=== PATIENT | male | born 1975 | race African-American/Black ===

== ENCOUNTER 2017-01-04 07:27 | Emergency (ER) ==
[2017-01-04] MEDS ORDERED: BENADRYL IV ONE (07:50)
[2017-01-04] MEDS ORDERED: APRESOLINE IV ONE (07:50)
--- NOTE | 2017-01-04 08:14 | PROVIDER DOCUMENTATION ---
HPI-General Adult - General Source: patient - History of Present Illness -Gen Adult Nature of Presenting Problems: Reports HENNING and knots in his top of head, etc. Pt has h/o migraine and HTN. Elevated BP noticed, but denies med noncompliance. Positive for photophobia and cough, but no N/V. Reports neck and shoulder muscle spasm. Pt reports a fire extinguisher fell on top of his head 2 months ago and there is an inflammation spot since then. Location of Pain/Injury: reports: head, neck, back Pain Radiation: reports: no radiation Quality of Pain: reports: aching Severity: reports: moderate Onset/Duration: reports: 1 week ago Timing: reports: still present Context/Activities at Onset: reports: none Modifying Factors: improves with: nothing Associated Symptoms: reports: denies symptoms, cough, fatigue. denies: loss of appetite, shortness of breath, syncope Similar Symptoms Previously?: No Recently seen or treated by another doctor?: No <Herberth Estrada - Last Filed: 01/04/17 08:09> <Kavon Huddleston - Last Filed: 01/04/17 10:07> - General Chief Complaint: General Adult Stated Complaint: MIGRAINE HEADACHE,VOMITING,DIARRHEA,KNOT ON NECK Time Seen by Provider: 01/04/17 07:43 Allergies/Adverse Reactions: Patient Allergies Allergy/AdvReac Type Severity Reaction Status Date / Time shellfish derived Allergy Severe RASH Verified 01/04/17 08:26 nuts Allergy Severe RASH Uncoded 01/04/17 08:26 Home Medications: Home Medication List Medication Instructions Recorded Confirmed Last Taken Type Clonidine [Catapres] 0.1 mg PO DAILY PRN #15 tablet 01/04/17 Unknown Rx Review of Systems - Adult - REVIEW OF SYSTEMS - ADULT Constitutional: reports: see HPI. denies: fever, fatique Eyes: reports: no symptoms reported Ears, Nose, Mouth & Throat: reports: no symptoms reported Cardiovascular: reports: no symptoms reported Respiratory: reports: no symptoms reported Gastrointestinal: reports: no symptoms reported Genitourinary: reports: no symptoms reported Musculoskeletal: reports: see HPI. denies: back pain Neurological: reports: see HPI, headache/migraines. denies: dizziness/vertigo, numbness, syncope Psychiatric: reports: no symptoms reported All Other Systems: Reviewed and Negative <Estrada,Wenli X - Last Filed: 01/04/17 08:09> Past History - Adult - PAST MEDICAL HISTORY-ADULT Review of Records: reports: Old Records Reviewed, Nursing Assessment Review, Medications Reviewed Major Childhood Illnesses: reports: denies history Cardiovascular: reports: HTN Respiratory: reports: denies history Gastrointestinal: reports: ulcer, other (diverticulitis) Obstetrical/Gynecological: reports: denies history Genitourinary: reports: denies history Musculoskeletal: reports: denies history Neurological: reports: headaches/migraines Endocrine/Immune: reports: denies history Other Conditions: reports: denies history - PRIOR SURGERIES/PROCEDURES Surgical/Procedure History: reports: none - PRIOR HOSPITALIZATIONS Prior Hospitalizations: reports: none - IMMUNIZATION STATUS Childhood Immunizations: See Nurse Assessment Flu Vaccine: See Nurse Assessment - FAMILY HISTORY Family History: reviewed, not pertinent <Herberth Estrada X - Last Filed: 01/04/17 08:09> Physical Exam-General - PHYSICAL EXAM-ADULT Initial Vital Signs Reviewed: Yes - CONSTITUTIONAL General Appearance: alert, no apparent distress - EYES Eyes: PERRL/EOMI, pink conjunctivae - HEAD, EARS, NOSE, MOUTH & THROAT HENMT: normocephalic/atraumatic, moist mucous membranes - NECK Neck: non-tender, full range of motion, supple, normal inspection, other ( Positive for muscle spasm) - RESPIRATORY Respiratory: chest non-tender, lungs clear, normal breath sounds, no pleuratic chest pain, no respiratory distress, no accessory muscle use - CARDIOVASCULAR Cardiovascular: normal peripheral pulses, regular rate, rhythm, no edema - GASTROINTESTINAL (ABDOMEN) Abdominal Exam: normal bowel sounds, non tender, soft - MUSCULOSKELETAL Back Exam: normal inspection, no CVA tenderness, no vertebral tenderness Extremity: normal range of motion, non-tender, normal gait, normal inspection - SKIN Integumentary: normal color, normal turgor, warm/dry, swelling (Top of head has a coin sized chronic inflammation spot from the fire extinguisher X 1-2 months ago. No signs for infection.), tenderness - NEUROLOGIC Neurologic: no motor/sensory deficits, abnormal gait - PSYCHIATRIC Psych/Mental Status: normal mood/affect, normal thought content, normal thought process, oriented x 3 <Herberth Estrada X - Last Filed: 01/04/17 08:09> Progress - PLAN OF CARE/RESULTS Progress/Plan/Lab Results: Vital Signs Temp Pulse Resp BP Pulse Ox 01/04/17 07:29 99.0 F 89 18 217/148 99 shellfish derived Allergy (Severe, Verified 01/04/17 08:26) RASH nuts Allergy (Severe, Uncoded 01/04/17 08:26) RASH Clonidine [Catapres] 0.1 mg PO DAILY PRN #15 tablet 01/04/17 Laboratory 01/04/17 01/04/17 01/04/17 07:57 07:57 07:57 WBC RBC Hgb Hct MCV MCH MCHC RDW Std Deviation Plt Count MPV Immature Gran % (Auto) Neut % (Auto) Lymph % (Auto) Cowley % (Auto) Eos % (Auto) Baso % (Auto) Immature Gran # (Auto) Neut # (Auto) Lymph # (Auto) Cowley # (Auto) Eos # (Auto) Baso # (Auto) Sodium 138 Potassium 3.9 Chloride 99 Carbon Dioxide 24 L Anion Gap 15 BUN 13 Creatinine 1.2 Estimated GFR/1.73 m2 > 60 BUN/Creatinine Ratio 11 Glucose 113 H Calculated Osmolality 277 Calcium 9.4 Magnesium 2.0 Total Bilirubin 0.34 AST 26 ALT 17 Alkaline Phosphatase 99 Creatine Kinase 404 H Creatine Kinase Index 1.1 CK-MB (CK-2) 4.34 Troponin T < 0.010 Ter-D-Tmzozajengi Pept 69 Total Protein 7.9 Albumin 4.2 Globulin 3.7 Albumin/Globulin Ratio 1.1 01/04/17 07:57 WBC 7.95 RBC 4.75 Hgb 15.4 Hct 44.1 MCV 92.8 MCH 32.4 H MCHC 34.9 RDW Std Deviation 13.6 Plt Count 215 MPV 10.6 H Immature Gran % (Auto) 0.0 Neut % (Auto) 56.5 Lymph % (Auto) 25.7 Cowley % (Auto) 17.1 H Eos % (Auto) 0.4 Baso % (Auto) 0.3 Immature Gran # (Auto) 0.00 Neut # (Auto) 4.50 Lymph # (Auto) 2.04 Cowley # (Auto) 1.36 H Eos # (Auto) 0.03 Baso # (Auto) 0.02 Sodium Potassium Chloride Carbon Dioxide Anion Gap BUN Creatinine Estimated GFR/1.73 m2 BUN/Creatinine Ratio Glucose Calculated Osmolality Calcium Magnesium Total Bilirubin AST ALT Alkaline Phosphatase Creatine Kinase Creatine Kinase Index CK-MB (CK-2) Troponin T [id number] Pept Total Protein Albumin Globulin Albumin/Globulin Ratio Orders Category Date Time Status Cardiac Monitoring DIRECTED Care 01/04/17 07:50 Active Saline Loc NOW Care 01/04/17 07:50 Active CHEST-PORTABLE [RAD] Stat Exams 01/04/17 07:50 Draft HEAD W/O CONTRAST [CT] Stat Exams 01/04/17 08:05 Taken CBC WITH ELECTRONIC DIFF [HEME] Stat Lab 01/04/17 07:57 Completed CK PROFILE [SP CHEM] Stat Lab 01/04/17 07:57 Completed COMPREHENSIVE METABOLIC PANEL [CHEM] Stat Lab 01/04/17 07:57 Completed INFLUENZA SCREEN A/B Stat Lab 01/04/17 07:57 Completed MAGNESIUM [CHEM] Stat Lab 01/04/17 07:57 Completed PRO B-NATRIURETIC PEPTIDE Stat Lab 01/04/17 07:57 Completed TROPONIN T Stat Lab 01/04/17 07:57 Completed Diphenhydramine [Benadryl] Med 01/04/17 07:50 Discontinued 25 mg IV NOW ONE Hydralazine [Apresoline] Med 01/04/17 07:50 Discontinued 20 mg IV NOW ONE Morphine Med 01/04/17 09:59 Discontinued 4 mg IV NOW ONE Ondansetron [Zofran] Med 01/04/17 09:59 Discontinued 4 mg IV NOW ONE EKG [EKG] Stat Ther 01/04/17 07:50 Draft pt will be d/c home f/u with pcp, rx given, pt was clinically and neurologically stable - REASSESSMENT Reassessment #1 Time Reassessed: 09:30 Status: other Reassessment Comment: BP improving, pain medication not given yet Reassessment #2 Time Reassessed: 10:06 Status: improving Reassessment Comment: d/c home post pain medications - EKG 1 Time of EKG reading by physician:: 08:12 EKG Read and Signed by:: Herberth Estrada EKG Interpretation (*Must complete 3 of following elements*): Abnormal Rate: 79 Rhythm: NSR QRS: normal ST Wave: non-specific ST changes Comments: LAE - XRAY 1 XRAY Study: Chest Impression: Normal XRAY Interpretation: negative - CT/MRI 1 CT Study: Head Impression: Normal CT Results: negative <Kavon Huddleston - Last Filed: 01/04/17 10:07> Departure <Herberth Estrada - Last Filed: 01/04/17 08:09> - Departure Time of Disposition Order: 10:06 Certified Medical Emergency: Emergent - Critical Care Note Total Time (mins): 40 Critical Care Statement: This patient required my direct personal management to treat or rule out processes, the absence of which, could potentiallly result in sudden, clinically significant life or limb threatening deterioration. <Kavon Huddleston - Last Filed: 01/04/17 10:07> - Departure DIAGNOSIS: Hypertensive urgency Headache Qualifiers: Headache type: tension-type Headache chronicity pattern: acute headache Intractability: not intractable Qualified Code(s): G44.209 - Tension-type headache, unspecified, not intractable Disposition: HOME 01 Condition: Stable Additional Instructions: ED Follow Up Instructions: You have been treated by a care provider in the Emergency Department. These instructions are being provided to you so you can have an understanding of how to care for yourself upon discharge. Upon discharge from the Emergency Department, you are responsible for making arrangements for follow-up care by a physician of your choice. Take all prescribed medications as directed. Return to the Emergency Department immediately for any new or worsening symptoms. You may call the Physician Referral phone number at [phone] to obtain a list of Physicians who are taking new patients. Prescriptions: Clonidine [Catapres] 0.1 mg PO DAILY PRN #15 tablet PRN Reason: Blood Pressure Referrals: Rayshawn Blackwell MD [Primary Care Provider] - Call for Appoint. 1-2days Instructions: Hypertension, [id number], Migraine Headache, [id number] Attestation - Scribe Verification/Attestation Scribe:: Kavon Huddleston Acting as Scribe for:: Herberth Estrada Scribe documention review:: This chart was documented by a scribe and accurately reflects the service the provider performed and the decisions made by the provider. <Kavon Huddleston - Last Filed: 01/04/17 10:07> Physician Attestation - Physician Attestation I, the provider, attest to the following statement:: Herberth Estrada Physician documentation Attestation:: This documentation recorded by the scribe accurately reflects the service I personally performed and the decisions made by me. <Kavon Huddleston - Last Filed: 01/04/17 10:07>
[2017-01-04 08:21] LABS: MANUAL DIFF NEEDED? NO
[2017-01-04 08:24] LABS: BASO% 0.3 % (0.0-0.8); EOS# 0.03 X1000 (0.0-0.7); EOS% 0.4 % (0.0-10.0); HEMATOCRIT 44.1 % (42.0-52.0); HEMOGLOBIN 15.4 g/dL (14.0-18.0); LYMPH# 2.04 X1000 (1.2-3.4); LYMPH% 25.7 % (20.5-51.1); MCH 32.4 PG (27-31); MCHC 34.9 g/dL (33-37); MCV 92.8 FL (81-99); MONO# 1.36 X1000 (0.11-0.59); MONO% 17.1 % (1.7-9.3); MPV 10.6 FL (7.4-10.4); NEUT% 56.5 % (42.2-75.2); PLT 215 X1000 (130-400); RBC 4.75 XMIL (4.7-6.1)
[2017-01-04 08:46] LABS: AGAP 15; ALBUMIN 4.2 g/dL (3.5-5.0); ALKALINE PHOSPHATASE 99 U/L (32-122); BUN 13 mg/dL (8-22); CALCIUM 9.4 mg/dL (8.8-10.2); CHLORIDE 99 mmol/L (98-107); COSMO 277; GOT 26 U/L (10-34); GPT 17 U/L (10-44); POTASSIUM 3.9 mmol/L (3.5-5.1); SODIUM 138 mmol/L (136-145); TCO2 24 mmol/L (25-35); TOTAL BILIRUBIN 0.34 mg/dL (0.20-1.00); TOTAL PROTEIN 7.9 g/dL (6.3-8.3)
[2017-01-04 08:50] LABS: CK PROFILE 404 U/L (24-204)
--- NOTE | 2017-01-04 08:56 | EKG Report ---
Test Performed on : 01/04/2017 08:12:54 AM Test Reason : Chest Pain Blood Pressure : / mmHG Vent. Rate : 079 BPM Atrial Rate : 079 BPM P-R Int : 178 ms QRS Dur : 084 ms QT Int : 344 ms P-R-T Axes : 037 039 035 degrees QTc Int : 394 ms Normal sinus rhythm. Possible Left atrial enlargement Septal infarct (cited on or before 24-APR-2016) Abnormal ECG When compared with ECG of 24-APR-2016 18:31, No significant change was found Unconfirmed Result
[2017-01-04 09:15] LABS: CK INDEX 1.1 (0.0-2.5); CK-MB 4.34 ng/mL (0.0-5.0)
[2017-01-04] MEDS ORDERED: MORPHINE IV ONE (09:59)
[2017-01-04] MEDS ORDERED: ZOFRAN IV ONE (09:59)
--- NOTE | 2017-01-04 10:02 | Diag Imaging Result Document ---
PROCEDURE NAME: CHEST-PORTABLE - 01/04/2017 PORTABLE CHEST X-RAY 01/04/2017: COMPARISON: 12/01/2015. FINDINGS: The lungs are normally expanded and clear. Heart size and mediastinal contours are normal. No pneumothorax or pleural effusion. IMPRESSION: Negative exam.
--- NOTE | 2017-01-04 10:10 | Diag Imaging Result Document ---
PROCEDURE NAME: HEAD W/O CONTRAST - 01/04/2017 CT OF THE HEAD WITHOUT CONTRAST: FINDINGS: There is no evidence of acute mass effect, bleed or abnormal extra-axial fluid collection. The visualized paranasal sinuses are clear. The calvarium is intact. IMPRESSION: No evidence of acute disease.
[2017-01-04 10:19] VITALS: BP 159/99
== END 2017-01-04 10:33 | disposition home or self-care (01) ==
LOC: ED 07:27
DX: I16.0 Hypertensive urgency (principal); G44.209 Tension-type headache, unspecified, not intractable; R51 Headache; R22.0 Localized swelling, mass and lump, head; M54.2 Cervicalgia; M54.9 Dorsalgia, unspecified; R05 Cough; R53.83 Other fatigue; M62.838 Other muscle spasm; W20.8XXA Other cause of strike by thrown, projected or falling object, initial encounter
CPT/HCPCS: 70450; 71010; 80053; 82550; 82553; 83735; 83880; 84484; 85025; 87804; 93005; 96374; 96375; J0360; J1200; J2270; J2405

== ENCOUNTER 2017-02-03 14:51 | Observation (INO) ==
[2017-02-03] MEDS ORDERED: NS 1,000 ML IV ONE ×2 (15:18→17:39)
[2017-02-03] MEDS ORDERED: SODIUM CHLORIDE 0.9% INJ ONE (15:20)
[2017-02-03] MEDS ORDERED: PHENERGAN IV ONE (15:20)
[2017-02-03 15:34] LABS: MANUAL DIFF NEEDED? NO
[2017-02-03 15:47] LABS: BASO% 0.1 % (0.0-0.8); EOS# 0.34 X1000 (0.0-0.7); EOS% 3.8 % (0.0-10.0); HEMATOCRIT 43.3 % (42.0-52.0); HEMOGLOBIN 14.9 g/dL (14.0-18.0); LYMPH# 2.98 X1000 (1.2-3.4); LYMPH% 33.4 % (20.5-51.1); MCH 32.5 PG (27-31); MCHC 34.4 g/dL (33-37); MCV 94.3 FL (81-99); MONO# 0.91 X1000 (0.11-0.59); MONO% 10.2 % (1.7-9.3); MPV 10.7 FL (7.4-10.4); NEUT% 52.5 % (42.2-75.2); PLT 235 X1000 (130-400); RBC 4.59 XMIL (4.7-6.1)
[2017-02-03 15:57] LABS: AGAP 15; ALBUMIN 4.6 g/dL (3.5-5.0); ALKALINE PHOSPHATASE 100 U/L (32-122); AMYLASE 150 U/L (20-200); BUN 24 mg/dL (8-22); CALCIUM 9.6 mg/dL (8.8-10.2); CHLORIDE 97 mmol/L (98-107); COSMO 278; GOT 27 U/L (10-34); GPT 18 U/L (10-44); LIPASE 49 U/L (13-60); POTASSIUM 3.4 mmol/L (3.5-5.1); SODIUM 137 mmol/L (136-145); TCO2 25 mmol/L (25-35); TOTAL BILIRUBIN 0.33 mg/dL (0.20-1.00); TOTAL PROTEIN 8.3 g/dL (6.3-8.3)
[2017-02-03 17:16] LABS: URINE CULTURE NEEDED? NO; URINE MICRO REVIEW NEEDED? NO; URINE SOURCE CLEAN CATCH
[2017-02-03 17:21] LABS: BILIRUBIN URINE NEGATIVE (NEGATIVE); BLOOD URINE NEGATIVE (NEGATIVE); COLOR YELLOW; GLUCOSE URINE NEGATIVE (NEGATIVE); LEUKOCYTES URINE NEGATIVE (NEGATIVE); NITRITE URINE NEGATIVE (NEGATIVE); PH URINE 6.5; PROTEIN URINE 30 mg/dL (NEGATIVE); SP GRAVITY URINE 1.027; TURBIDITY URINE CLEAR (CLEAR); UR EPITHELIAL CELLS <10 /HPF (<10); URINE BACTERIA NEGATIVE /HPF; URINE RBC <10 /HPF (<10); URINE WBC <10 /HPF (<10); UROBILINOGEN URINE NORMAL (NORMAL)
--- NOTE | 2017-02-03 17:26 | Diag Imaging Result Document ---
PROCEDURE NAME: ABDOMEN FLAT/UPRIGHT - 02/03/2017 ABDOMEN, 2 VIEWS: COMPARISON: 12/01/2015. FINDINGS: Two views of the patient's abdomen were obtained in both the supine and upright positions. There is no evidence of free air under the diaphragm or air-fluid levels noted. The remainder of the visualized abdomen is unremarkable. IMPRESSION: Normal supine and upright abdomen study.
[2017-02-03 17:31] LABS: UR AMPHETAMINES QUAL NONE DETECTED (NONE DETECT); UR BARBITUATES QUAL NONE DETECTED (NONE DETECT); UR BENZODIAZEPIN QUAL NONE DETECTED (NONE DETECT); UR CANNABINOIDS QUAL PRESUMPTIVE POSITIVE (NONE DETECT); UR COCAINE QUAL NONE DETECTED (NONE DETECT); UR METHADONE QUAL NONE DETECTED (NONE DETECT); UR OPIATES QUAL NONE DETECTED (NONE DETECT); UR OXYCODONE QUAL NONE DETECTED (NONE DETECT); UR PCP QUAL NONE DETECTED (NONE DETECT)
[2017-02-03] MEDS ORDERED: ZOFRAN IV ONE (17:57)
[2017-02-03] MEDS ORDERED: CATAPRES-TTS-1 TD ONE (18:31)
[2017-02-03] MEDS: ZOFRAN IV PRN (19:15)
[2017-02-03] MEDS ORDERED: LOVENOX SUBQ SCH (19:15)
[2017-02-03] MEDS ORDERED: PROTONIX IV SCH (19:15)
[2017-02-03] MEDS ORDERED: SODIUM CHLORIDE 0.9% INJ SCH (19:15)
[2017-02-03] MEDS: DILAUDID IV PRN (20:31)
[2017-02-03] MEDS: APRESOLINE IV PRN (20:33)
--- NOTE | 2017-02-03 20:40 | Diag Imaging Result Document ---
PROCEDURE NAME: HEAD W/O CONTRAST - 02/03/2017 CT OF THE HEAD: A CT dose reduction protocol was used. COMPARISON: 01/04/2017. FINDINGS: The ventricles and sulci are normal in size and contour. There is no mass, hemorrhage, or evidence of acute ischemia. The bony calvaria is intact. The visualized paranasal sinuses and mastoid air cells are clear. IMPRESSION: Negative head CT. MTDD
--- NOTE | 2017-02-03 20:43 | Diag Imaging Result Document ---
PROCEDURE NAME: ABDOMEN/PELVIS W/CONTRAST - 02/03/2017 CT OF THE ABDOMEN AND PELVIS WITH INTRAVENOUS CONTRAST: A CT dose reduction protocol was used. COMPARISON: 04/24/2016. FINDINGS: The lung bases are clear and the heart size is normal. The liver, gallbladder, spleen, pancreas, adrenals, and kidneys are normal. No bowel obstruction or inflammation. Normal appendix. Urinary bladder, prostate, and rectum are normal. IMPRESSION: Negative exam. MTDD
--- NOTE | 2017-02-03 21:35 | HISTORY AND PHYSICAL ---
CHIEF COMPLAINT: Abdominal pain, nausea, vomiting. HISTORY OF PRESENT ILLNESS: Mr. Mccallum is a 41-year-old gentleman with a history of hypertension, GERD and previous admissions for intractable nausea and vomiting as well as marijuana dependence who presents with acute onset of abdominal pain, nausea, and vomiting that began this morning. He was at work at [employer] and began to experience intense bilateral lower quadrant abdominal pain followed by multiple episodes of emesis. He was in his normal state of health yesterday. He denies eating anything uncooked or novel. He denies any recent travel. He denies any chest pain or shortness of breath. No fevers or chills and no diarrhea. He came to the ER today because intractable nature of his vomiting and abdomen x-ray was done and it did not show anything acute. Laboratory data is largely unremarkable. He does have positive cannabinoid test and some mild hypokalemia. On physical exam he has lower quadrant tenderness to palpation but his belly is soft. He is quite lethargic, difficult to arouse and answer questions. Speech is a bit slurred and looks like he did get some Phenergan in the ER. His vital signs are stable. He is now going to be admitted for intractable nausea, vomiting. PAST MEDICAL HISTORY: 1. Hypertension. 2. GERD. 3. History of cyclic vomiting. 4. Marijuana dependence. SURGERIES: None. SOCIAL HISTORY: Patient smokes marijuana every other day. He denies alcohol or tobacco use. He is single and he has no children. He works at [employer]. FAMILY HISTORY: Significant for diabetes and hypertension. REVIEW OF SYSTEMS: Fourteen-point review of systems obtained and found to be negative with the exception of the HPI. HOME MEDICATIONS: Catapres 0.1 mg daily, irbesartan 150 mg daily, omeprazole 20 mg daily, Promethazine 25 mg every 6 hours as needed. ALLERGIES: To shellfish derivatives and nuts. PHYSICAL EXAMINATION: VITAL SIGNS: Blood pressure is 179/96, heart rate is 89, respiratory 22, O2 saturation 100% on room air, temperature is 98.1 degrees. GENERAL: This is a well-developed, well-nourished male lying in hospital bed lethargic but in no acute distress. NEUROLOGIC: The patient is lethargic, fairly difficult to arouse by verbal stimulus but he will converse after some time. He follows commands without focal deficits and he is oriented. HEENT: Head atraumatic and normocephalic. His pupils are equal, round, reactive to light. His oral mucosa is a bit dry. Trachea is midline. There is no JVD. CHEST: Clear to auscultation bilaterally. CV: Regular rate and rhythm. S1-S2 is noted. No murmurs, gallops, clicks, or rubs. GI: Diffusely tender to palpation mostly in both lower quadrants. Hypoactive bowel sounds are noted. There is no rigidity. Belly is overall soft. EXTREMITIES: Without edema, clubbing or cyanosis. Pulses are palpable bilaterally. DIAGNOSTIC DATA: Abdomen x-ray is negative. WBC 8.92, hemoglobin 14.9, hematocrit 43.3, platelet count 235,000. Sodium 137, potassium 3.4, chloride 97, CO2 25, anion gap 15, BUN 24, creatinine 1.2, glucose 108. LFTs within normal limits. Lipase and amylase within normal limits. Urine is negative for acute process. Toxicology is positive for cannabinoids. ASSESSMENT AND PLAN: 1. Cyclic vomiting: Unclear as to the etiology, possibly marijuana induced. We are going to go ahead and check a CT of the abdomen and pelvis with contrast now and consult Dr. Jack on Sunday unless he is feeling better by tomorrow and can go home and will have him see him on outpatient basis as there is nothing acute. We are also going to check a lactic acid. Will continue with IV fluids, antiemetics and NPO status. 2. Toxic metabolic encephalopathy: Again unclear as to the etiology, possibly marijuana induced. We are going to check a head CT, lactic acid, salicylate, acetaminophen levels, alcohol level, TSH, B12 and folate. Spice intoxication is also a possibility. 3. Hypertension: Obviously we are not going to be able to give him anything by mouth now. He takes clonidine every day so will start a 1 mg patch as to not abruptly withdraw this medication. Will also have IV p.r.n. medications as needed. 4. History of gastroesophageal reflux disease: Will start IV Protonix. 5. Deep vein thrombosis prophylaxis with Lovenox. Further recommendations to follow. Dictated by CÉSAR March for Gunner Isaacs MD cc: CÉSAR March MD
[2017-02-04] MEDS: DILAUDID IV PRN ×3 (00:42→10:43)
[2017-02-04] MEDS: APRESOLINE IV PRN ×4 (00:42→09:00)
[2017-02-04] MEDS ORDERED: LOPRESSOR PO ONE (04:27)
[2017-02-04] MEDS: ZOFRAN IV PRN ×2 (04:38→08:56)
[2017-02-04] MEDS: NITROGLYCERIN TOP SCH ×2 (04:39→15:24)
[2017-02-04] MEDS: TYLENOL PO PRN ×2 (10:39→16:04)
[2017-02-04 15:36] VITALS: BP 137/82
--- NOTE | 2017-02-05 04:23 | DISCHARGE SUMMARY ---
ADMISSION DATE: 02/03/2017 DISCHARGE DATE: 02/04/2017 DISPOSITION: Home. FOLLOWUP: Will be with patient's primary care physician. CONSULTATION DURING THIS ADMISSION: None. IMAGING STUDIES OF SIGNIFICANCE: 1. A CT scan of the abdomen and pelvic was done which shows negative studies. 2. A CT scan of the head also shows negative. ADMISSION DIAGNOSES: 1. Cyclic vomiting. 2. Toxic metabolic encephalopathy. 3. Hypertension. DISCHARGE DIAGNOSES: 1. Altered mental status on presentation due toxic metabolic encephalopathy. 2. Nausea and vomiting, likely due to drug induced (cannabis). 3. Cannabis abuse. 4. Hypertension. PRESENTING COMPLAINT: Abdominal pain, nausea, and vomiting. HISTORY OF PRESENTING COMPLAINT: Mr. Mccallum is a 41-year-old male with a history of hypertension, gastroesophageal reflux disease, who has some previous admission for intractable nausea and vomiting. The patient presented in the same fashion with uncontrollable nausea and vomiting. The patient got treatment in the emergency room but did not subside and we were consulted for admission. HOSPITAL COURSE: The patient was admitted and kept NPO, IV fluids, and symptoms were managed. Overnight he improved remarkably. A CT scan of the abdomen and pelvis was completely unremarkable. The patient was also altered, so a CT scan of the head was done which was also unremarkable. Today he refers to feel a whole lot better. He has been up and walking. He is no more altered. His vitals are reviewed and stable and the patient is able to tolerate his diet. We are therefore going to discharge him. The patient has been counseled. We stressed counseling on cannabis cessation, since we think it is the cause of his problems with the cyclic vomiting. The patient is advised also to be compliant with his medications and follow up with his primary care doctor. At the time of discharge, the patient vitals blood pressure is 140/93, pulse is 100, respiration is 20, temperature is 98.8 degrees. TIME SPENT: The time spent for discharge is 37 minutes. cc: Gunner Isaacs MD MTDAnh
--- NOTE | 2017-02-21 13:11 | PROVIDER DOCUMENTATION ---
This chart was entered by Jaja Boyd, acting as scribe for Haroon Kyle MD. HPI-Abdominal Pain/GI Problem - General Chief Complaint: Abdominal Pain Stated Complaint: VOMITING Time Seen by Provider: 02/03/17 15:12 Source: patient Allergies/Adverse Reactions: Patient Allergies Allergy/AdvReac Type Severity Reaction Status Date / Time shellfish derived Allergy Severe RASH Verified 02/03/17 15:45 nuts Allergy Severe RASH Uncoded 02/03/17 15:45 Home Medications: Home Medication List Medication Instructions Recorded Confirmed Last Taken Type Clonidine [Catapres] 0.1 mg PO DAILY PRN #15 tablet 01/04/17 02/03/17 Unknown Rx Irbesartan [Irbesartan] 1 tab PO 02/03/17 02/03/17 07:00 History Omeprazole [Omeprazole] 1 tab PO DAILY 02/03/17 02/03/17 02/02/17 07:00 History Promethazine HCl [Promethazine HCl] 1 tab PO PRN PRN 02/03/17 02/03/17 02/03/17 07:00 History - History of Present Illness-ABD Nature of Presenting Problems: pt is a 41 y/o male present to the Er with cc of vomiting x5 episodes along with abdominal pain since this morning. pt states he comes into the Er with this problem very often and they called it dehydration or diverticulitis. pt states symptoms started this morning at 9am. Pt also states the only thing he did was smoke some weed last night. denies diarrhea, fever, chills. Abdominal Pain Onset Location: reports: LLQ Pain Radiation: reports: no radiation Quality of Pain: reports: tightness Severity in ED: reports: moderate Onset/Duration: reports: this morning Timing: reports: still present Activities at Onset: reports: none Exposure to sick contacts?: No Modifying Factors: improves with: nothing Associated Symptoms: reports: nausea, vomiting Last BM: 24 hours ago Rectal Bleeding: reports: none # of Diarrhea Episodes: 0 # of Vomiting Episodes: 5 Bruising or Bleeding Gums?: No Similar Symptoms Previously?: No Recently seen or treated by another doctor?: No Review of Systems - Adult - REVIEW OF SYSTEMS - ADULT Constitutional: denies: chills, fever, fatique Eyes: reports: no symptoms reported Ears, Nose, Mouth & Throat: reports: no symptoms reported Cardiovascular: reports: no symptoms reported Respiratory: denies: chronic cough, cough, dyspnea on exertion Gastrointestinal: reports: abdominal pain, nausea, vomiting. denies: difficulty swallowing, frequent heartburn Genitourinary: denies: dysuria, discharge, frequency Musculoskeletal: reports: no symptoms reported Integumentary: reports: no symptoms reported Neurological: reports: no symptoms reported Psychiatric: reports: no symptoms reported Endocrine: reports: no symptoms reported Hematologic/Lymphatic: reports: no symptoms reported Allergic/Immunologic: reports: no symptoms reported All Other Systems: Reviewed and Negative Past History - Adult - PAST MEDICAL HISTORY-ADULT Review of Records: reports: Old Records Reviewed, Nursing Assessment Review Major Childhood Illnesses: reports: denies history Cardiovascular: reports: HTN Respiratory: reports: denies history Gastrointestinal: reports: ulcer, other (diverticulitis) Obstetrical/Gynecological: reports: denies history Genitourinary: reports: denies history Musculoskeletal: reports: denies history Neurological: reports: headaches/migraines Endocrine/Immune: reports: denies history Other Conditions: reports: denies history - PRIOR SURGERIES/PROCEDURES Surgical/Procedure History: reports: none - PRIOR HOSPITALIZATIONS Prior Hospitalizations: reports: none - IMMUNIZATION STATUS Childhood Immunizations: See Nurse Assessment Flu Vaccine: See Nurse Assessment - FAMILY HISTORY Family History: reviewed, not pertinent - SOCIAL HISTORY Smoking: other (former smoker) Provider spent 3-5 mins advising pt. on dangers of tobacco.: Discussed manners to quit use, and f/u contacts for add'l counseling. Substance Use: marijuana Physical Exam-General - PHYSICAL EXAM-ADULT Initial Vital Signs Reviewed: Yes - CONSTITUTIONAL General Appearance: appears well, alert, no apparent distress, moderate distress - EYES Eyes: pink conjunctivae - HEAD, EARS, NOSE, MOUTH & THROAT HENMT: moist mucous membranes - NECK Neck: non-tender, full range of motion - RESPIRATORY Respiratory: chest non-tender, lungs clear, normal breath sounds, no pleuratic chest pain, no respiratory distress, no accessory muscle use - CARDIOVASCULAR Cardiovascular: normal peripheral pulses, regular rate, rhythm - GASTROINTESTINAL (ABDOMEN) Abdominal Exam: normal bowel sounds, tenderness (LLQ TTP) - MUSCULOSKELETAL Extremity: normal range of motion, non-tender, normal gait, normal inspection, no pedal edema, no calf tenderness, normal capillary refill - SKIN Integumentary: normal color, normal turgor, warm/dry - NEUROLOGIC Neurologic: grossly normal, no motor/sensory deficits - PSYCHIATRIC Psych/Mental Status: normal mood/affect, normal thought content, normal thought process, oriented x 3 Progress - PLAN OF CARE/RESULTS Progress/Plan/Lab Results: Vital Signs - 8 hr 02/03/17 14:57 Temperature 97.6 F Pulse Rate 93 H Respiratory Rate 20 Blood Pressure 191/123 O2 Sat by Pulse Oximetry 100 Orders Category Date Time Status Saline Loc DIRECTED Care 02/03/17 15:00 Active NPO Diet 02/03/17 15:00 Active AMYLASE [CHEM] Stat Lab 02/03/17 15:00 Uncollected CBC WITH ELECTRONIC DIFF [HEME] Stat Lab 02/03/17 15:00 Uncollected COMPREHENSIVE METABOLIC PANEL [CHEM] Stat Lab 02/03/17 15:00 Uncollected LIPASE [CHEM] Stat Lab 02/03/17 15:00 Uncollected UDS [URINE DRUG SCREEN] Stat Lab 02/03/17 15:13 Uncollected URINALYSIS W/POSS RFLX CULT [URINALYSIS] Stat Lab 02/03/17 15:00 Uncollected 0.9% Sodium Chloride Inj [Ns] 1,000 ml Med 02/03/17 15:18 Active IV 999 mls/hr Laboratory Tests 02/03/17 02/03/17 15:15 15:15 WBC 8.92 RBC 4.59 L Hgb 14.9 Hct 43.3 MCV 94.3 MCH 32.5 H MCHC 34.4 RDW Std Deviation 13.6 Plt Count 235 MPV 10.7 H Neut % (Auto) 52.5 Lymph % (Auto) 33.4 [place] % (Auto) 10.2 H Eos % (Auto) 3.8 Baso % (Auto) 0.1 Neut # (Auto) 4.68 Lymph # (Auto) 2.98 [place] # (Auto) 0.91 H Eos # (Auto) 0.34 Baso # (Auto) 0.01 Sodium 137 Potassium 3.4 L Chloride 97 L Carbon Dioxide 25 Anion Gap 15 BUN 24 H Creatinine 1.2 Estimated GFR/1.73 m2 > 60 BUN/Creatinine Ratio 20 Glucose 108 H Calculated Osmolality 278 Calcium 9.6 Total Bilirubin 0.33 AST 27 ALT 18 Alkaline Phosphatase 100 Total Protein 8.3 Albumin 4.6 Globulin 3.7 Albumin/Globulin Ratio 1.2 Amylase 150 Lipase 49 Orders Category Date Time Status Saline Loc DIRECTED Care 02/03/17 15:00 Active NPO Diet 02/03/17 15:00 Active ABDOMEN FLAT/UPRIGHT [RAD] Stat Exams 02/03/17 15:19 Ordered AMYLASE [CHEM] Stat Lab 02/03/17 15:00 Uncollected CBC WITH ELECTRONIC DIFF [HEME] Stat Lab 02/03/17 15:00 Uncollected COMPREHENSIVE METABOLIC PANEL [CHEM] Stat Lab 02/03/17 15:00 Uncollected LIPASE [CHEM] Stat Lab 02/03/17 15:00 Uncollected UDS [URINE DRUG SCREEN] Stat Lab 02/03/17 15:13 Uncollected URINALYSIS W/POSS RFLX CULT [URINALYSIS] Stat Lab 02/03/17 15:00 Uncollected 0.9% Sodium Chloride Inj [Ns] 1,000 ml Med 02/03/17 15:18 Active IV 999 mls/hr Promethazine [Phenergan] Med 02/03/17 15:20 Discontinued 25 mg IV NOW ONE Sodium Chloride 0.9% Med 02/03/17 15:20 Discontinued 10 ml INJ NOW ONE Vital Signs - 24 hr 02/03/17 14:57 Temperature 97.6 F Pulse Rate 93 H Respiratory Rate 20 Blood Pressure 191/123 O2 Sat by Pulse Oximetry 100 Laboratory Tests 02/03/17 02/03/17 02/03/17 15:15 15:15 16:58 WBC 8.92 RBC 4.59 L Hgb 14.9 Hct 43.3 MCV 94.3 MCH 32.5 H MCHC 34.4 RDW Std Deviation 13.6 Plt Count 235 MPV 10.7 H Neut % (Auto) 52.5 Lymph % (Auto) 33.4 [place] % (Auto) 10.2 H Eos % (Auto) 3.8 Baso % (Auto) 0.1 Neut # (Auto) 4.68 Lymph # (Auto) 2.98 [place] # (Auto) 0.91 H Eos # (Auto) 0.34 Baso # (Auto) 0.01 Sodium 137 Potassium 3.4 L Chloride 97 L Carbon Dioxide 25 Anion Gap 15 BUN 24 H Creatinine 1.2 Estimated GFR/1.73 m2 > 60 BUN/Creatinine Ratio 20 Glucose 108 H Calculated Osmolality 278 Calcium 9.6 Total Bilirubin 0.33 AST 27 ALT 18 Alkaline Phosphatase 100 Total Protein 8.3 Albumin 4.6 Globulin 3.7 Albumin/Globulin Ratio 1.2 Amylase 150 Lipase 49 Urine Source CLEAN CATCH Urine Color YELLOW Urine Turbidity CLEAR Urine pH 6.5 Ur Specific [place] 1.027 Urine Protein 30 A Ur Glucose (Stick) NEGATIVE Ur Ketones (Stick) TRACE A Urine Blood NEGATIVE Urine Nitrite NEGATIVE Urine Bilirubin NEGATIVE Urobilinogen Dipstick NORMAL Urine Leukocytes NEGATIVE Urine WBC (Auto) <10 Urine RBC (Auto) <10 U Epithel Cells (Auto) <10 Urine Bacteria (Auto) NEGATIVE Urine Opiates Screen Ur Oxycodone Screen Ur Methadone, Qual Ur Barbiturates Screen Ur Phencyclidine Scrn Ur Amphetamines Screen U Benzodiazepines Scrn Urine Cocaine Screen U Cannabinoids Screen 02/03/17 16:58 WBC RBC Hgb Hct MCV MCH MCHC RDW Std Deviation Plt Count MPV Neut % (Auto) Lymph % (Auto) [place] % (Auto) Eos % (Auto) Baso % (Auto) Neut # (Auto) Lymph # (Auto) [place] # (Auto) Eos # (Auto) Baso # (Auto) Sodium Potassium Chloride Carbon Dioxide Anion Gap BUN Creatinine Estimated GFR/1.73 m2 BUN/Creatinine Ratio Glucose Calculated Osmolality Calcium Total Bilirubin AST ALT Alkaline Phosphatase Total Protein Albumin Globulin Albumin/Globulin Ratio Amylase Lipase Urine Source Urine Color Urine Turbidity Urine pH Ur Specific [place] Urine Protein Ur Glucose (Stick) Ur Ketones (Stick) Urine Blood Urine Nitrite Urine Bilirubin Urobilinogen Dipstick Urine Leukocytes Urine WBC (Auto) Urine RBC (Auto) U Epithel Cells (Auto) Urine Bacteria (Auto) Urine Opiates Screen NONE DETECTED Ur Oxycodone Screen NONE DETECTED Ur Methadone, Qual NONE DETECTED Ur Barbiturates Screen NONE DETECTED Ur Phencyclidine Scrn NONE DETECTED Ur Amphetamines Screen NONE DETECTED U Benzodiazepines Scrn NONE DETECTED Urine Cocaine Screen NONE DETECTED U Cannabinoids Screen PRESUMPTIVE POSITIVE A Result Diagrams: 02/03/17 15:15 02/03/17 15:15 - XRAY 1 XRAY: Bilateral XRAY Study: Abdomen (abdomen flat/upright) Impression: Normal (normal supine and upright abdomen study) Departure - Departure Time of Disposition Decision: 19:10 DIAGNOSIS: Intractable vomiting, Abdominal pain Disposition: ADMITTED INPATIENT 09 Certified Medical Emergency: Emergent Condition: Stable - Critical Care Note This patient required my direct personal management.: No This chart was documented by the indicated scribe, (Jaja Boyd) and accurately reflects the services I performed and decisions made by me, Haroon Kyle MD, as attested by the provider's signature.
== END 2017-02-04 16:35 | disposition home or self-care (01) ==
LOC: ED 14:51 → 4N 20:42 → INTOOBSV 20:42
PROVIDERS: ATTEND Internal Medicine

== ENCOUNTER 2018-11-20 07:05 | Inpatient (IN) ==
--- NOTE | 2018-11-20 07:57 | PROVIDER DOCUMENTATION ---
HPI-Abdominal Pain/GI Problem - General Chief Complaint: N/V/D Stated Complaint: VOMITING / SWEATING / DEHYDRATED Time Seen by Provider: 11/20/18 07:49 Source: patient Unable to obtain history due to:: urgency Allergies/Adverse Reactions: Patient Allergies Allergy/AdvReac Type Severity Reaction Status Date / Time shellfish derived Allergy Severe RASH Verified 06/03/18 09:32 nuts Allergy Severe RASH Uncoded 06/03/18 09:32 Home Medications: Home Medication List Medication Instructions Recorded Confirmed Last Taken Type Dicyclomine [Bentyl] 10 mg PO 4XDAY PRN PRN #14 cap 06/03/18 Unknown Rx Ondansetron Odt [Zofran 4 mg Odt] 4 mg PO Q6H PRN PRN #20 tab 06/03/18 Unknown Rx - History of Present Illness-ABD Abdominal Pain Onset Location: reports: generalized abdomen Severity in ED: reports: moderate Onset/Duration: reports: 2 days ago Timing: reports: still present Associated Symptoms: reports: diarrhea Similar Symptoms Previously?: No Review of Systems - Adult - REVIEW OF SYSTEMS - ADULT Constitutional: reports: see HPI Eyes: reports: no symptoms reported Ears, Nose, Mouth & Throat: reports: no symptoms reported Cardiovascular: reports: no symptoms reported Respiratory: reports: no symptoms reported Gastrointestinal: reports: abdominal pain, diarrhea, vomiting Genitourinary: reports: no symptoms reported Musculoskeletal: reports: no symptoms reported Integumentary: reports: no symptoms reported Neurological: reports: no symptoms reported Psychiatric: reports: no symptoms reported Hematologic/Lymphatic: reports: no symptoms reported Past History - Adult - PAST MEDICAL HISTORY-ADULT Review of Records: reports: Nursing Assessment Review, Medications Reviewed Major Childhood Illnesses: reports: denies history Cardiovascular: reports: HTN (stopped taking HTN meds months ago, was told they were not necessary) Respiratory: reports: denies history Gastrointestinal: reports: ulcer, other (diverticulitis, hyperemesis from THC use) Obstetrical/Gynecological: reports: denies history Genitourinary: reports: denies history Musculoskeletal: reports: denies history Neurological: reports: headaches/migraines, Seizures/Epilepsy Psychiatric: reports: denies history Endocrine/Immune: reports: denies history Other Conditions: reports: denies history - PRIOR SURGERIES/PROCEDURES Surgical/Procedure History: reports: colonoscopy, cholecystectomy, other ( fistulotomy) - PRIOR HOSPITALIZATIONS Prior Hospitalizations: reports: none - IMMUNIZATION STATUS Childhood Immunizations: See Nurse Assessment Flu Vaccine: See Nurse Assessment - FAMILY HISTORY Family History: reviewed, not pertinent Physical Exam-General - PHYSICAL EXAM-ADULT Initial Vital Signs Reviewed: Yes - CONSTITUTIONAL General Appearance: alert, no apparent distress - EYES Eyes: PERRL/EOMI - HEAD, EARS, NOSE, MOUTH & THROAT HENMT: normocephalic/atraumatic - NECK Neck: non-tender, supple - RESPIRATORY Respiratory: chest non-tender - CARDIOVASCULAR Cardiovascular: tachycardia - GASTROINTESTINAL (ABDOMEN) Abdominal Exam: tenderness - LYMPHATIC Lymphatic: no adenopathy - MUSCULOSKELETAL Back Exam: normal inspection, no CVA tenderness, no vertebral tenderness Extremity: normal range of motion, non-tender - 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, grossly normal, no motor/sensory deficits Progress - PLAN OF CARE/RESULTS Progress/Plan/Lab Results: Vital Signs - 8 hr 11/20/18 07:12 Temperature 97.4 F L Pulse Rate 97 H Respiratory Rate 18 Blood Pressure 220/136 O2 Sat by Pulse Oximetry 100 Orders Category Date Time Status Saline Loc DIRECTED Care 11/20/18 07:24 Active NPO Diet 11/20/18 07:24 Active AMYLASE [CHEM] Stat Lab 11/20/18 07:24 Ordered CBC WITH ELECTRONIC DIFF [HEME] Stat Lab 11/20/18 07:24 Ordered CK PROFILE [SP CHEM] Stat Lab 11/20/18 07:25 Ordered COMPREHENSIVE METABOLIC PANEL [CHEM] Stat Lab 11/20/18 07:24 Ordered LIPASE [CHEM] Stat Lab 11/20/18 07:24 Ordered TROPONIN T Stat Lab 11/20/18 07:[address] W/POSS RFLX CULT [URINALYSIS] Stat Lab 11/20/18 07:24 Uncollected EKG [EKG] Stat Ther 11/20/18 07:25 Ordered Result Diagrams: 11/20/18 08:00 11/20/18 08:00 - CONSULTS/PCP/HOSPITALIST Notification #1 *Consult/PCP/Hospitalist*: Dr Hall Time Discussed: 11:47 (OK to admit ) Departure - Departure Date of Disposition Decision: 11/20/18 Time of Disposition Decision: 11:46 DIAGNOSIS: Intractable vomiting with nausea, Intractable vomiting Disposition: ADMITTED INPATIENT 09 Certified Medical Emergency: Emergent Condition: Good Referrals and Follow-Ups: None,PCP [Primary Care Provider] - - Critical Care Note This patient required my direct & personal management of CC.: No Attestation - Physician/ ABBY Attestation Patient care was provided by Advanced Practice Provider:: No The physician spent face to face time with patient:: Yes Advanced Practice Provider documentation review:: Supervising physician onsite and consulted in the evaluation and care of this patient. The physician did have a face to face encounter with the patient.
[2018-11-20] MEDS ORDERED: ZOFRAN IV ONE (07:58)
[2018-11-20] MEDS ORDERED: NS 1,000 ML IV ONE (07:59)
--- NOTE | 2018-11-20 08:06 | EKG Report ---
Test Performed on : 11/20/2018 07:28:59 AM Test Reason : cp Blood Pressure : / mmHG Vent. Rate : 068 BPM Atrial Rate : 068 BPM P-R Int : 182 ms QRS Dur : 092 ms QT Int : 374 ms P-R-T Axes : 013 019 034 degrees QTc Int : 397 ms Normal sinus rhythm. Septal infarct , age undetermined Abnormal ECG When compared with ECG of 04-JUN-2018 03:20, No significant change was found Unconfirmed Result
[2018-11-20 08:14] LABS: BASO# 0.01 X1000 (0.0-0.2); BASO% 0.1 % (0.0-0.8); EOS# 0.16 X1000 (0.0-0.7); EOS% 1.3 % (0.0-10.0); HEMATOCRIT 44.8 % (42.0-52.0); HEMOGLOBIN 15.2 g/dL (14.0-18.0); IMM GRAN# 0.03 X1000 (0.0-0.04); IMM GRAN% 0.2 % (0.0-0.5); LYMPH# 2.82 X1000 (1.2-3.4); LYMPH% 23.5 % (20.5-51.1); MCH 32.1 PG (27-31); MCHC 33.9 g/dL (33-37); MCV 94.7 FL (81-99); MONO% 9.2 % (1.7-9.3); MPV 11.2 FL (7.4-10.4); NEUT# 7.89 X1000 (1.4-6.5); NEUT% 65.7 % (42.2-75.2); PLT 205 X1000 (130-400); RBC 4.73 XMIL (4.7-6.1); RDW 13.6 % (11.5-14.5); WBC 12.01 X1000 (4.8-10.8)
[2018-11-20 08:37] LABS: AGAP 14; ALBUMIN 4.4 g/dL (3.5-5.0); ALKALINE PHOSPHATASE 79 U/L (32-122); AMYLASE 179 U/L (20-200); BUN 11 mg/dL (8-22); CALCIUM 9.7 mg/dL (8.8-10.2); CHLORIDE 106 mmol/L (98-107); COSMO 286; CREATININE 1.1 mg/dL (0.7-1.2); ESTIMATED GFR > 60; GLUCOSE 133 mg/dL (70-104); GOT 28 U/L (10-34); GPT 15 U/L (10-44); LIPASE 37 U/L (13-60); POTASSIUM 3.9 mmol/L (3.5-5.1); SODIUM 143 mmol/L (136-145); TCO2 24 mmol/L (25-35)
--- NOTE | 2018-11-20 09:16 | ED EKG INTERP ---
This chart was entered by Gely Santiago Scribe, acting as scribe for Loida Mello MD. EKG Interpretation - EKG Time of EKG reading by physician:: 07:28 EKG Read and Signed by:: Loida Mello EKG Interpretation (*Must complete 3 of following elements*): Abnormal Rate: 68 Rhythm: nsr [place]: normal QRS: normal [place] Interval: normal ST Wave: normal Comments: septal infarct, age undetermined Attestation - Physician/ ABBY Attestation Patient care was provided by Advanced Practice Provider:: No The physician spent face to face time with patient:: Yes Advanced Practice Provider documentation review:: Supervising physician onsite and consulted in the evaluation and care of this patient. The physician did have a face to face encounter with the patient. This chart was documented by the indicated scribe, (Gely Santiago Scribe) and accurately reflects the services I performed and decisions made by me, Loida Mello MD, as attested by the provider's signature.
--- NOTE | 2018-11-20 09:32 | Diag Imaging Result Doc PS360 ---
EXAM: CT ABDOMEN/PELVIS W/O CONTRAST HISTORY: vomiting, abdominal pain TECHNIQUE: CT abdomen and pelvis without contrast COMPARISON: 06/03/2018 FINDINGS: The gallbladder has been removed. No focal hepatic abnormality identified on this noncontrasted exam. The spleen is small. Normal pancreas and adrenal glands. No perinephric inflammation. No renal stones. No hydronephrosis. Normal aorta. No bowel obstruction. Normal appendix. No abscess. Questionable thickening to the colon although it is not distended. The urinary bladder is only mildly distended. Normal prostate. There are small iliac and inguinal lymph nodes. IMPRESSION: 1.Cholecystectomy 2.Questionable colonic wall thickening although it is not distended. This exam was performed using automated exposure control, adjustment of mA or kV according to patient size, and/or use of iterative reconstruction technique. Electronically signed by Rmaón Dudley 11/20/2018 9:30 AM
[2018-11-20] MEDS ORDERED: REGLAN IV ONE (09:37)
[2018-11-20] MEDS ORDERED: MORPHINE IV ONE (09:37)
[2018-11-20 10:04] LABS: CK INDEX 1.2 (0.0-2.5); CK-MB 3.16 ng/mL (0.0-5.0)
[2018-11-20 10:18] LABS: BILIRUBIN URINE NEGATIVE (NEGATIVE); BLOOD URINE TRACE (NEGATIVE); CLARITY CLEAR (CLEAR); COLOR YELLOW; GLUCOSE URINE NEGATIVE (NEGATIVE); KETONE URINE TRACE mg/dL (NEGATIVE); LEUKOCYTES URINE TRACE (NEGATIVE); NITRITE URINE NEGATIVE (NEGATIVE); PROTEIN URINE 1+(30 mg/dL) mg/dL (NEGATIVE); SP GRAVITY URINE 1.015; UROBILINOGEN URINE NORMAL
[2018-11-20 10:19] LABS: URINE EPITHELIAL CELLS <10 /HPF (<10); URINE RBC <10 /HPF (<10); URINE SOURCE CLEAN CATCH; URINE WBC <10 /HPF (<10)
[2018-11-20 10:33] LABS: UR AMPHETAMINES QUAL NONE DETECTED (NONE DETECT); UR BARBITUATES QUAL NONE DETECTED (NONE DETECT); UR BENZODIAZEPIN QUAL NONE DETECTED (NONE DETECT); UR CANNABINOIDS QUAL PRESUMPTIVE POSITIVE (NONE DETECT); UR COCAINE QUAL NONE DETECTED (NONE DETECT); UR METHADONE QUAL NONE DETECTED (NONE DETECT); UR METHAMPHETAMINE QUAL NONE DETECTED (NONE DETECT); UR OPIATES QUAL PRESUMPTIVE POSITIVE (NONE DETECT); UR OXYCODONE QUAL NONE DETECTED (NONE DETECT); UR PCP QUAL NONE DETECTED (NONE DETECT); UR PROPOXYPHENE QUAL NONE DETECTED (NONE DETECT); UR TCA QUAL NONE DETECTED (NONE DETECT)
[2018-11-20] MEDS ORDERED: PHENERGAN IV ONE (12:30)
[2018-11-20] MEDS ORDERED: SODIUM CHLORIDE 0.9% INJ ONE (12:30)
[2018-11-20] MEDS ORDERED: CATAPRES PO ONE (12:31)
[2018-11-20] MEDS ORDERED: LABETALOL IV ONE ×2 (12:41→13:00)
[2018-11-20] MEDS ORDERED: NS 50 ML ONE (12:46)
[2018-11-20] MEDS: NS 1,000 ML IV SCH ×3 (13:06→20:56)
--- NOTE | 2018-11-20 13:23 | Diag Imaging Result Doc PS360 ---
EXAM: CT HEAD W/O CONTRAST HISTORY: intractable vomiting, hypertension, headache TECHNIQUE: CT head without contrast COMPARISON: 02/03/2017 FINDINGS: No parenchymal hemorrhage. No epidural or subdural hematoma. No subarachnoid hemorrhage. No mass identified on this noncontrasted exam. No hydrocephalus. No sinus opacification. Mild interval increase in the size of the right superior scalp subcutaneous nodule. IMPRESSION: No hemorrhage. Negative brain CT without contrast. This exam was performed using automated exposure control, adjustment of mA or kV according to patient size, and/or use of iterative reconstruction technique. Electronically signed by Ramón Dudley 11/20/2018 1:20 PM
[2018-11-20] MEDS: CARDENE 20 MG/NS 20 MG/200 ML PIGGYBACK IV SCH ×7 (16:05→21:57)
[2018-11-20] MEDS: PHENERGAN IV PRN ×2 (18:09→22:22)
[2018-11-20] MEDS: SODIUM CHLORIDE 0.9% INJ PRN ×2 (18:09→22:33)
[2018-11-20] MEDS: LOPRESSOR IV PRN (19:31)
--- NOTE | 2018-11-20 19:34 | HISTORY AND PHYSICAL ---
CHIEF COMPLAINT: Nausea, vomiting, diarrhea, abdominal pain. HISTORY OF PRESENT ILLNESS: This is a 43-year-old gentleman with a history of hypertension, gastroesophageal reflux disease with previous admissions for intractable nausea and vomiting, as well as marijuana dependence. He presents to the emergency room complaining of 2 days of just generalized abdominal pain, nausea, and vomiting. He describes This as a crampy type pain, 10/10 at its worst, and 7/10 at its least. He states that he last held any oral intake down 3 days ago. He denied any black or bloody vomitus or stools. He did state that he last smoked marijuana 5 days ago. He was noted to have blood pressure of 220/136 on arrival to the emergency room. He has been given 20 mg of labetalol IV along with Reglan and morphine, Phenergan. Pressures remain in the 200s over 115 to 118. PAST MEDICAL HISTORY: Hypertension, gastroesophageal reflux disease, history of cyclic vomiting, marijuana dependence. PAST SURGICAL HISTORY: I and D of perirectal abscess. SOCIAL HISTORY: He smokes marijuana on a regular basis. He denies any alcohol use. He does smoke about half a pack a day. ALLERGIES: Shellfish and nuts which cause a rash. HOME MEDICATIONS: None. REVIEW OF SYSTEMS: Discussed with patient with pertinent positives stated in HPI. He denied any syncope, dizziness, any chest pain, palpitations, any shortness of breath, cough, fever, chills, any night sweats, any black or bloody vomitus or stools; any hematuria, dysuria, frequency or urgency. PHYSICAL EXAMINATION: GENERAL: This is a 43-year-old gentleman who is lying on his side flat in the bed in the emergency room in no distress. VITAL SIGNS: Blood pressure is 211/118 with heart rate of 78, respirations are 18, temperature is 97.4 degrees oral with room air saturations 99%. EYES: Pupils equal, round, react to light. EOMs are intact. Sclerae are anicteric. HEENT: Head is normocephalic, atraumatic. Mucous membranes are dry. NECK: Supple with trachea midline. CARDIOVASCULAR: Regular rate and rhythm. No murmurs, gallops noted. He has no lower extremity edema. Peripheral pulses are palpable x4 extremities. CHEST: Breath sounds are clear bilaterally. He has no increased work of breathing. Chest rises and falls symmetrically with respirations. GASTROINTESTINAL: Abdomen is soft with diffuse tenderness with bowel sounds in all 4 quadrants. NEUROLOGIC: He is alert. He is oriented. LABORATORY DATA: WBC of 12 with a hemoglobin 15.2, hematocrit 44.8, platelets of 205,000. Sodium 143, potassium 3.9, BUN 11, creatinine 1.1 with a glucose of 133. Total CPK is 270. Urinalysis is essentially negative. Urine drug screen is presumptive positive for opiates and cannabinoids. CT of the head reveals no hemorrhage. Negative brain CT without contrast. CT of the abdomen and pelvis without contrast, post cholecystectomy, questionable colonic wall thickening, although it is not distended. ASSESSMENT AND PLAN: 1. 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 The patient states that he has had this in the past. He did state that this started within 48 hours of smoking pot. He will remain n.p.o. We will give antiemetics and continue IV hydration. 2. Hypertensive urgency. We will place the patient in ICU. Place on a Cardene drip and monitor. He states that his primary care physician took him off his blood pressure medicines. We have encouraged him to take medications as prescribed and to discuss this on a follow-up visit. 3. Gastroesophageal reflux disease. We will give IV Protonix. 4. DVT prophylaxis. We will use Lovenox. 5. Further treatments pending hospital course. Dictated by CÉSAR Davenport for Sarabjit Bravo MD This chart was documented by, CÉSAR Davenport and accurately reflects the services performed, treatment plan and medical decisions as attested by the providers signature Sarabjit Bravo MD. cc: CÉSAR Davenport MD
[2018-11-20] MEDS ORDERED: CARDENE 20 MG/NS 20 MG/200 ML PIGGYBACK IV SCH (21:30)
[2018-11-20] MEDS: PROTONIX IV SCH (22:22)
[2018-11-20] MEDS: OFIRMEV 1000 MG/ISOTONIC SOLN 1,000 MG/100 ML BOTTLE IV PRN (22:23)
--- NOTE | 2018-11-20 22:27 | EKG Report ---
Test Performed on : 11/20/2018 9:53:00 PM Test Reason : CP Blood Pressure : / mmHG Vent. Rate : 130 BPM Atrial Rate : 130 BPM P-R Int : 154 ms QRS Dur : 074 ms QT Int : 298 ms P-R-T Axes : 066 087 071 degrees QTc Int : 438 ms Sinus tachycardia. Right atrial enlargement Septal infarct (cited on or before 20-NOV-2018) Abnormal ECG When compared with ECG of 20-NOV-2018 07:28, (Unconfirmed) Vent. rate has increased BY 62 BPM QRS duration has decreased Unconfirmed Result
[2018-11-21] MEDS: LOPRESSOR IV PRN (01:03)
[2018-11-21] MEDS: NS 1,000 ML IV SCH ×4 (01:09→18:13)
[2018-11-21] MEDS: PHENERGAN IV PRN ×4 (02:21→19:38)
[2018-11-21] MEDS: SODIUM CHLORIDE 0.9% INJ PRN ×3 (02:22→19:39)
[2018-11-21] MEDS: OFIRMEV 1000 MG/ISOTONIC SOLN 1,000 MG/100 ML BOTTLE IV PRN ×2 (04:37→10:43)
[2018-11-21] MEDS: CARDENE 20 MG/NS 20 MG/200 ML PIGGYBACK IV SCH ×2 (06:20→23:05)
[2018-11-21 07:05] LABS: BASO# 0.02 X1000 (0.0-0.2); BASO% 0.1 % (0.0-0.8); EOS# 0.01 X1000 (0.0-0.7); EOS% 0.1 % (0.0-10.0); HEMATOCRIT 47.5 % (42.0-52.0); HEMOGLOBIN 16.3 g/dL (14.0-18.0); IMM GRAN# 0.03 X1000 (0.0-0.04); IMM GRAN% 0.2 % (0.0-0.5); LYMPH# 2.68 X1000 (1.2-3.4); LYMPH% 16.8 % (20.5-51.1); MCH 31.9 PG (27-31); MCHC 34.3 g/dL (33-37); MONO# 1.87 X1000 (0.11-0.59); MONO% 11.7 % (1.7-9.3); NEUT# 11.32 X1000 (1.4-6.5); NEUT% 71.1 % (42.2-75.2); PLT 164 X1000 (130-400); RBC 5.11 XMIL (4.7-6.1); RDW 13.6 % (11.5-14.5); WBC 15.93 X1000 (4.8-10.8)
[2018-11-21 07:14] LABS: AGAP 15; ALBUMIN 3.6 g/dL (3.5-5.0); ALKALINE PHOSPHATASE 78 U/L (32-122); BUN 10 mg/dL (8-22); CALCIUM 9.5 mg/dL (8.8-10.2); CHLORIDE 108 mmol/L (98-107); COSMO 278; CREATININE 0.8 mg/dL (0.7-1.2); ESTIMATED GFR > 60; GLUCOSE 97 mg/dL (70-104); GOT 25 U/L (10-34); GPT 13 U/L (10-44); POTASSIUM 4.3 mmol/L (3.5-5.1); SODIUM 140 mmol/L (136-145); TCO2 17 mmol/L (25-35); TOTAL PROTEIN 7.4 g/dL (6.3-8.3)
[2018-11-21] MEDS: PROTONIX IV SCH ×2 (08:58→21:26)
[2018-11-21] MEDS: PRINIVIL PO SCH ×2 (08:59→21:26)
[2018-11-21] MEDS: COREG PO SCH ×2 (08:59→21:26)
[2018-11-21] MEDS: ZOSYN 3.375 GM in NS 50 ML IV SCH ×3 (10:43→21:26)
--- NOTE | 2018-11-21 10:48 | PROGRESS NOTE ---
DATE: 11/21/2018 SUBJECTIVE: Patient reports feeling still nauseated, but he is not throwing up since yesterday. He is receiving Phenergan for that. He reports mild headache but no other complaints. OBJECTIVE: Vital Signs: Temperature 99.3, heart rate 98, respiratory rate 20, blood pressure 162/92. O2 saturation 94% on room air. General Examination: This is a 43-year- old - [place] male, lying in bed in no acute distress. HEENT: Head is normocephalic , atraumatic. Mucous membranes dry. Neck: No JVD noted. No carotid bruits. No lymphadenopathy. No thyromegaly. Cardiovascular: S1, S2 heard. Tachycardic. No murmurs, gallops , or rubs noted. Respiratory: Clear bilaterally to auscultation. No work of breathing or using accessory muscles. Abdomen soft. Nontender to palpation. Bowel sounds present. No organomegaly. Extremities: No clubbing, cyanosis, or edema. Peripheral pulses present in both legs. Neurologic: Patient alert and oriented x3. Moves 4 extremities. LABORATORY DATA: White cell count is 15.93, hemoglobin 16.3, hematocrit 47.5, platelets 164,000 with normal BMP. ASSESSMENT AND PLAN: 1. Hypertensive urgency. The patient's blood pressure was noted to be very high in the ER when he was admitted. It was in the range of 197 to 210s. Patient has been transferred over here to the ICU with Cardene drip. Also, patient was very tachycardic. So, we started him on metoprolol 5 mg q.6 hours p.r.n. to heart rate greater than 100. Unfortunately, this patient continues to have really high blood pressure. The patient knows that he has hypertension but he was told a few years ago in [facility] that he does not need to take any blood pressure medications. In any case, we will continue with Cardene drip. We are going to start Coreg 12.5 mg p.o. b.i.d. considering his elevated heart rate and also lisinopril 10 mg p.o. twice daily as well. At this point, we will continue to monitor this patient here in the intensive care unit. 2. Hyperemesis cannabinoid syndrome. Actually, we have checked in prior records that is not the first time that this patient this problem. In any case we will continue to continue with IV fluids. We will decrease the amount of normal saline from 250 to 150 mL/ hour. We will continue to monitor. We are using Phenergan to control nausea and vomiting. We will continue to monitor. 3. Possible respiratory infection. The patient reports feeling feverish, and he reports having had a cough and some sputum production for the last 3 to 4 days. Considering that his white cell count is getting higher and temperature is mildly elevated, I prefer to go ahead and start antibiotics and will check a CT of the thorax without contrast to see there is any pneumonia that we are missing. DISPOSITION: We will continue to monitor this patient closely. cc: Sarabjit Bravo MD MTDD
--- NOTE | 2018-11-21 15:44 | Diag Imaging Result Doc PS360 ---
EXAM: CT THORAX W/O CONTRAST HISTORY: pna TECHNIQUE: Images were obtained from the lung apices through bases as per standard protocol. COMPARISON: None. FINDINGS: No mediastinal or hilar lymphadenopathy is appreciated. Small calcified hilar lymph nodes are noted. Trace pericardial fluid. No pleural effusion or pneumothorax. There is mild linear atelectasis or scarring at the bases. No focal consolidation. Musculoskeletal structures unremarkable. Images of the abdomen reveal cholecystectomy clips and bilateral perirenal fluid/soft tissue stranding. The kidneys are only partially visualized. IMPRESSION: 1.No evidence for pneumonia. 2.Mild basilar atelectasis versus scarring. 3.Bilateral perirenal edema or soft tissue stranding. Correlate clinically. This exam was performed using automated exposure control, adjustment of mA or kV according to patient size, and/or use of iterative reconstruction technique. Electronically signed by Susanna Chacon 11/21/2018 3:42 PM
[2018-11-21] MEDS: SODIUM CHLORIDE 0.9% INJ SCH (21:27)
[2018-11-21] MEDS ORDERED: MORPHINE ONE (22:31)
[2018-11-21] MEDS: MORPHINE IV PRN (22:33)
[2018-11-21] MEDS: VASOTEC IV SCH (23:19)
[2018-11-22] MEDS: PHENERGAN IV PRN ×2 (00:24→09:50)
[2018-11-22] MEDS: SODIUM CHLORIDE 0.9% INJ PRN ×2 (00:24→09:50)
[2018-11-22] MEDS: LOPRESSOR IV PRN ×2 (01:14→09:45)
[2018-11-22] MEDS: NS 1,000 ML IV SCH ×5 (01:24→23:56)
[2018-11-22] MEDS: MORPHINE IV PRN ×6 (01:58→22:26)
[2018-11-22] MEDS: CARDENE 20 MG/NS 20 MG/200 ML PIGGYBACK IV SCH ×5 (02:33→21:42)
[2018-11-22] MEDS: ZOSYN 3.375 GM in NS 50 ML IV SCH ×4 (04:49→22:24)
[2018-11-22] MEDS: COREG PO SCH ×2 (08:22→22:23)
[2018-11-22] MEDS: PROTONIX IV SCH ×2 (09:33→22:23)
[2018-11-22] MEDS ORDERED: NS 50 ML ONE (09:53)
[2018-11-22] MEDS: VASOTEC IV SCH ×2 (11:22→22:54)
--- NOTE | 2018-11-22 13:45 | PROGRESS NOTE ---
DATE: 11/22/2018 SUBJECTIVE: Patient denies having any acute complaints this morning. OBJECTIVE: Vital Signs: Temperature 99.3 degrees, pulse 98 per minute, respiratory rate 21 per minute, blood pressure 183/81, pulse oximetry 100% on room air. General: Patient is alert and oriented x3. He does not appear to be in any acute distress. Cardiovascular System: First and second heart sounds are audible without any murmurs or gallops. Respiratory System: No respiratory distress noted. Bilateral lung air entry is good without any rales or rhonchi. Gastrointestinal System: Abdomen is soft and nondistended. Normal bowel sounds are present. DIAGNOSTIC DATA: CBC shows WBC count of 15.93. Rest of the CBC is nondiagnostic. This CBC was done yesterday. Comprehensive metabolic panel done yesterday was nondiagnostic. CT chest done yesterday showed no evidence of pneumonia and mild bibasilar atelectasis versus scarring was also noted. Bilateral perirenal edema or soft tissue stranding was noted as well. CT scan of the abdomen and pelvis done 2 days ago on 11/20/2018 showed cholecystectomy and questionable colonic wall thickening, although there was no colonic distention. IMPRESSION: 1. Resistant hypertension. 2. Intractable vomiting. 3. Questionable colonic wall thickening. PLAN: The patient has been getting Vasotec 1.25 mg IV q. 12 hours along with nicardipine IV as needed. Drip. Furthermore, he is getting metoprolol IV as needed, along with carvedilol 12.5 mg orally q. 12 hours. His blood pressure is still uncontrolled and therefore, I am going to start him on spironolactone 25 mg once daily. The patient told me that he has been taking several blood pressure medications in the past, but he quit taking them since he did not know that he had to keep taking them. He does not remember the name of those medications at this time, however. The patient will be kept on promethazine IV as needed for intractable vomiting and will also get morphine sulfate on as-needed basis for any pain. Furthermore, we are going to continue with Zosyn intravenously for any possible colonic infection. Further recommendations will be given as per hospital course. cc: Sis Davis MD
[2018-11-22] MEDS: ALDACTONE PO SCH (13:53)
[2018-11-22 14:57] LABS: HEMATOCRIT 45.8 % (42.0-52.0); MCH 32.6 PG (27-31); MCHC 34.9 g/dL (33-37); MCV 93.3 FL (81-99); MPV 11.1 FL (7.4-10.4); RBC 4.91 XMIL (4.7-6.1); RDW 13.4 % (11.5-14.5); WBC 13.85 X1000 (4.8-10.8)
[2018-11-22 15:18] LABS: AGAP 13; BUN 15 mg/dL (8-22); CALCIUM 9.1 mg/dL (8.8-10.2); CHLORIDE 103 mmol/L (98-107); COSMO 272; ESTIMATED GFR > 60; GLUCOSE 110 mg/dL (70-104); POTASSIUM 3.7 mmol/L (3.5-5.1); SODIUM 135 mmol/L (136-145); TCO2 19 mmol/L (25-35)
[2018-11-22] MEDS ORDERED: BLISTEX MEDICATED BERRY LIP BALM TOP PRN (17:52)
--- NOTE | 2018-11-22 18:26 | Diag Imaging Result Doc PS360 ---
EXAM: CT ABD/PELVIS W/IV CONT ONLY HISTORY: diffuse abd pain, distention, fever TECHNIQUE: Emergency CT of the abdomen and pelvis with intravenous contrast COMPARISON: 11/20/2018 FINDINGS: The gallbladder has been removed. There is fatty infiltration of the liver. The spleen is small. Normal pancreas and adrenal glands. Normal kidneys. No hydronephrosis. Normal aorta. Normal appendix. No abscess. Fluid distended loops of small bowel in the mid and left abdomen.. Normal distention to the colon on the current exam. Trace fluid in the left paracolic gutter. The urinary bladder is mildly distended and is normal. Normal prostate. IMPRESSION: 1.Cholecystectomy 2.Fatty liver 3.No evidence of colitis 4.Possible ileus This exam was performed using automated exposure control, adjustment of mA or kV according to patient size, and/or use of iterative reconstruction technique. Electronically signed by Ramón Dudley 11/22/2018 6:24 PM
[2018-11-22] MEDS: SODIUM CHLORIDE 0.9% INJ SCH (22:23)
[2018-11-22] MEDS: DULCOLAX PR SCH (22:24)
[2018-11-22] MEDS: REGLAN IV SCH (22:24)
[2018-11-23] MEDS: DULCOLAX PR SCH ×3 (03:04→13:10)
[2018-11-23] MEDS: MORPHINE IV PRN ×2 (03:04→15:59)
[2018-11-23] MEDS: ZOSYN 3.375 GM in NS 50 ML IV SCH ×4 (06:31→22:30)
[2018-11-23] MEDS: REGLAN IV SCH ×3 (06:31→16:06)
[2018-11-23] MEDS: NS 1,000 ML IV SCH ×3 (06:32→22:33)
[2018-11-23 07:39] LABS: BASO# 0.02 X1000 (0.0-0.2); BASO% 0.2 % (0.0-0.8); EOS# 0.06 X1000 (0.0-0.7); EOS% 0.6 % (0.0-10.0); HEMATOCRIT 46.4 % (42.0-52.0); HEMOGLOBIN 15.8 g/dL (14.0-18.0); IMM GRAN# 0.02 X1000 (0.0-0.04); IMM GRAN% 0.2 % (0.0-0.5); LYMPH# 3.03 X1000 (1.2-3.4); LYMPH% 28.5 % (20.5-51.1); MCHC 34.1 g/dL (33-37); MCV 94.1 FL (81-99); MONO# 1.18 X1000 (0.11-0.59); MONO% 11.1 % (1.7-9.3); MPV 10.8 FL (7.4-10.4); NEUT# 6.32 X1000 (1.4-6.5); NEUT% 59.4 % (42.2-75.2); PLT 177 X1000 (130-400); RBC 4.93 XMIL (4.7-6.1); RDW 13.6 % (11.5-14.5); WBC 10.63 X1000 (4.8-10.8)
[2018-11-23 08:34] LABS: AGAP 12; ALBUMIN 3.6 g/dL (3.5-5.0); ALKALINE PHOSPHATASE 69 U/L (32-122); BUN 13 mg/dL (8-22); CHLORIDE 106 mmol/L (98-107); COSMO 278; CREATININE 1.1 mg/dL (0.7-1.2); ESTIMATED GFR > 60; GLUCOSE 104 mg/dL (70-104); GOT 17 U/L (10-34); GPT 13 U/L (10-44); POTASSIUM 3.7 mmol/L (3.5-5.1); SODIUM 139 mmol/L (136-145); TCO2 22 mmol/L (25-35); TOTAL PROTEIN 6.5 g/dL (6.3-8.3)
[2018-11-23] MEDS: ALDACTONE PO SCH (10:57)
[2018-11-23] MEDS: PROTONIX IV SCH (10:57)
[2018-11-23] MEDS: SODIUM CHLORIDE 0.9% INJ SCH (10:57)
[2018-11-23] MEDS: COREG PO SCH ×2 (10:58→22:30)
--- NOTE | 2018-11-23 11:42 | GENERAL SURGERY CONSULTATION ---
DATE: 11/23/2018 REQUESTING PHYSICIAN: Dr. Davis. REASON FOR CONSULTATION: Concerning possible ileus. HISTORY OF PRESENT ILLNESS: A 43-year-old male with a history of hypertension, gastroesophageal reflux disease, and history of previous intractable nausea and vomiting, presenting to the emergency department with 2-day history of generalized abdominal pain, nausea, vomiting. He described it as cramping, 10/10, but it has improved. Now, he has passed a little bit of gas. He did have some hypertensive emergency. In the process of working him up they did get a CT scan that showed some possible colonic thickening. They have repeated the CT scan which showed no real colonic thickening, but possible ileus. The patient has had a small bowel movement and seems to be doing okay. PAST MEDICAL HISTORY: Hypertension, gastroesophageal reflux disease, cyclic vomiting, marijuana dependence. PAST SURGICAL HISTORY: Previous cholecystectomy and perirectal abscess. SOCIAL HISTORY: Does have recreational drugs. ALLERGIES: Shellfish and nuts. HOME MEDICATIONS: An MAR reviewed. FAMILY HISTORY: Reviewed with the patient and noncontributory. REVIEW OF SYSTEMS: A full 10 point review of systems obtained and negative, otherwise as specified in HPI. PHYSICAL EXAMINATION: Vital Signs: Patient is currently afebrile. His vital signs are stable. General Exam: No acute distress. Alert, interactive male, who looks stated age. HEENT: Normocephalic, atraumatic. Pupils equal, round, reactive to light. Mucous membranes moist. Oropharynx benign. Neck: Supple. Trachea midline. Cardiovascular: Regular rate and rhythm. Lungs: Grossly clear. Abdomen: Soft, nontender, nondistended. Bowel sounds auscultated. Extremities: Moves all extremities. Neurologic: Grossly intact. Skin: No signs of jaundice. Vascular: All extremities perfused. LABORATORY: Pending this morning, but white blood cell count yesterday was 13. Remainder of labs reviewed. IMAGING: Reviewed and radiology report with possible ileus noted. ASSESSMENT AND PLAN: A 43 year old with possible ileus. 1. Possible ileus. At this time, he has had a bowel movement. He is feeling okay. We will put him on a clear liquid diet. I think the patient will probably need to have a colonoscopy given the questionable colitis picture and his recurrent bouts of nausea and vomiting. He may also need to have an endoscopy, but at this time we will get him over this, and I can see him in the office as an outpatient to schedule esophagogastroduodenoscopy and colonoscopy. I will put him on a clear liquid diet and see how he does. I appreciate the consultation. cc: Hugo Elias MD
--- NOTE | 2018-11-23 11:54 | PROGRESS NOTE ---
DATE: 11/23/2018 SUBJECTIVE: The patient feels very well today and denies having any acute complaints. He is up and awake. He has had several bowel movements since last night and denies having any abdominal pain or any nausea anymore. OBJECTIVE: Vital Signs: Temperature 98 degrees, pulse 77 per minute, respiratory rate 18 per minute, blood pressure 134/73, pulse oximetry 99% on room air. General: Patient is alert and oriented x3. Cardiovascular System: First and second heart sounds are audible without any murmurs or gallops. Respiratory System: No respiratory distress noted. Bilateral lung air entry is good without any rales or rhonchi. Gastrointestinal: Abdomen is soft and nondistended. Normal bowel sounds are present. DIAGNOSTIC DATA: CBC and comprehensive metabolic panel are both nondiagnostic. IMPRESSION: 1. Resistant hypertension. 2. Intractable vomiting that has now improved. 3. Colonic wall thickening on CT scan. PLAN: The patient's condition has significantly improved and his hypertension has also normalized. He will be transferred out of ICU to regular floor and I am going to continue him on IV fluids along with oral spironolactone. He probably may not need any antihypertensive medicines at discharge, however. We are going to continue with Zosyn for now and monitor him for another 24 hours on a regular floor before we can decide whether he can go home. cc: Sis Davis MD
[2018-11-23] MEDS: VASOTEC IV SCH (12:55)
[2018-11-23] MEDS: PHENERGAN IV PRN (19:19)
[2018-11-23] MEDS ORDERED: ZOFRAN IV PRN (20:20)
[2018-11-24] MEDS: ZOSYN 3.375 GM in NS 50 ML IV SCH ×2 (04:29→13:26)
--- NOTE | 2018-11-24 06:35 | GENERAL SURGERY PROGRESS NOTE ---
DATE: 11/24/2018 SUBJECTIVE: Patient moved out of the ICU. He seems to be doing okay. He had a bowel movement. He has been tolerating his regular diet. Otherwise, no major issues. OBJECTIVE: Vital Signs: The patient is currently afebrile. His vital signs are stable. General Examination: No acute distress. HEENT: Normocephalic, atraumatic. Pupils equal, round, react to light. Mucous membranes moist. Oropharynx benign. Neck: Supple. Trachea midline. Cardiovascular: Regular rate and rhythm. Lungs: Grossly clear. Abdomen: Soft, nontender, nondistended. Extremities: Moves all extremities. Neurologic: Grossly intact. Skin: No signs of jaundice. Vascular: All extremities perfused. Laboratory: None this morning as of yet. ASSESSMENT AND PLAN: A 43-year-old with probable ileus. Probable ileus. At this time, he has had a bowel movement. He is tolerating a regular diet. I think he can likely be discharged in the near future. From a surgical point of view, I think he probably needs a colonoscopy given the findings of questionable colitis. We can do this as an outpatient. When I see him as an outpatient in followup, I could schedule him for this. We may even consider doing an esophagogastroduodenoscopy at that time given his nausea and vomiting but otherwise, we will follow while he is in the hospital. cc: Hugo Elias MD
[2018-11-24] MEDS: NS 1,000 ML IV SCH ×2 (06:38→13:26)
[2018-11-24] MEDS ORDERED: PRILOSEC PO SCH (07:00)
[2018-11-24] MEDS: COREG PO SCH (08:07)
[2018-11-24] MEDS: ALDACTONE PO SCH (08:07)
[2018-11-24 12:08] VITALS: BP 162/107
--- NOTE | 2018-11-24 13:38 | DISCHARGE SUMMARY ---
ADMISSION DATE: 11/20/2018 DISCHARGE DATE: 11/24/2018 DISCHARGE DIAGNOSES: 1. Resistant hypertension. 2. Intractable nausea and vomiting, most likely secondary to hyperemesis cannabinoid syndrome. 3. Possible colitis. HOSPITAL COURSE: This is a 43-year-old gentleman who has history of hypertension and acid reflux in the past. He has previous admissions for intractable nausea, vomiting, as well as marijuana use and dependence. He came into the hospital with intractable nausea and vomiting associated with abdominal pain. He was noted to have significantly elevated blood pressure of 220/136. He was admitted to the hospital and was given IV labetalol along with Vasotec and later on was on nicardipine drip. His blood pressure gradually improved and his condition has resolved. He did have a CT scan of the abdomen and pelvis that showed possible colitis. His abdominal pain improved after he had several bowel movements. Surgical consultation was obtained and they thought that the patient's main issue was constipation and the colitis was kind of questionable. He did receive IV Zosyn throughout this hospital admission and that might have helped as well, but he is currently asymptomatic and therefore he is going to be discharged home today. DISCHARGE MEDICATION: Spironolactone/hydrochlorothiazide 25 mg/25 mg orally once daily in the morning. DIET: Low-salt diet. CONDITION: Stable. DISPOSITION: Home. FOLLOW-UP: He is advised to follow up his with his PCP in approximately 1 week. cc: Sis Davis MD
== END 2018-11-24 13:05 | disposition home or self-care (01) | DRG 305 ==
LOC: P.MEDSURG 07:05 → P.ED 07:05 → SUATTDRO 07:06 → OBSVTOIN 07:06 → P.EDIPHOLD 17:55 → P.ICU 21:58 → P.MEDSURG 11-23 20:09
PROVIDERS: ATTEND Internal Medicine
CPT/HCPCS: 70450; 71250; 74176; 74177; 80048; 80053; 80104; 80301; 80305; 81001; 82150; 82550; 82553; 83605; 83690; 84484; 85025; 85027; 87040; 87088; 93005; 96365; 96366; 96375; 96376; 99285; A9270; C9113; G0431; G0434; G0477; J0131; J2270; J2405; J2543; J2550; J2765; J7030; Q9967; S0164

== ENCOUNTER 2019-03-28 10:10 | Inpatient (IN) ==
[2019-03-28] MEDS ORDERED: ZOFRAN IV ONE (10:33)
[2019-03-28] MEDS ORDERED: NS 1,000 ML IV ONE ×2 (10:33→12:55)
[2019-03-28] MEDS ORDERED: DILAUDID IV ONE (10:34)
[2019-03-28 12:14] LABS: BASO# 0.03 X1000 (0.0-0.2); BASO% 0.2 % (0.0-0.8); HEMOGLOBIN 15.7 g/dL (14.0-18.0); IMM GRAN# 0.03 X1000 (0.0-0.04); IMM GRAN% 0.2 % (0.0-0.5); LYMPH# 2.32 X1000 (1.2-3.4); LYMPH% 15.1 % (20.5-51.1); MCH 32.1 PG (27-31); MCHC 34.9 g/dL (33-37); MONO# 1.26 X1000 (0.11-0.59); MONO% 8.2 % (1.7-9.3); MPV 11.5 FL (7.4-10.4); NEUT# 11.68 X1000 (1.4-6.5); NEUT% 76.3 % (42.2-75.2); PLT 235 X1000 (130-400); RBC 4.89 XMIL (4.7-6.1); RDW 13.5 % (11.5-14.5); WBC 15.32 X1000 (4.8-10.8)
[2019-03-28 12:32] LABS: AGAP 14; CHLORIDE 98 mmol/L (98-107); POTASSIUM 4.2 mmol/L (3.5-5.1); SODIUM 139 mmol/L (136-145); TCO2 27 mmol/L (25-35)
[2019-03-28 12:33] LABS: ALB/GLOB RATIO 1.1; ALBUMIN 4.7 g/dL (3.5-5.0); ALKALINE PHOSPHATASE 113 U/L (32-122); BUN 22 mg/dL (8-22); CALCIUM 9.2 mg/dL (8.8-10.2); COSMO 283; CREATININE 1.1 mg/dL (0.7-1.2); ESTIMATED GFR > 60; GLUCOSE 133 mg/dL (70-104); GOT 29 U/L (10-34); GPT 18 U/L (10-44); LIPASE 258 U/L (13-60); TOTAL BILIRUBIN 0.38 mg/dL (0.20-1.00); TOTAL PROTEIN 8.9 g/dL (6.3-8.3)
[2019-03-28] MEDS ORDERED: 1/2 NS 1,000 ML IV ONE (16:38)
[2019-03-28] MEDS ORDERED: SODIUM CHLORIDE 0.9% INJ SCH (17:45)
[2019-03-28] MEDS: NS 1,000 ML IV SCH (17:51)
[2019-03-28] MEDS: ZOFRAN IV PRN ×2 (17:52→21:27)
[2019-03-28] MEDS: PEPCID IV SCH (17:53)
[2019-03-28] MEDS: DILAUDID IV PRN ×2 (17:53→21:25)
[2019-03-28] MEDS: APRESOLINE IV PRN (17:58)
[2019-03-28 18:19] LABS: UR AMPHETAMINES QUAL NONE DETECTED (NONE DETECT); UR BARBITUATES QUAL NONE DETECTED (NONE DETECT); UR BENZODIAZEPIN QUAL NONE DETECTED (NONE DETECT); UR CANNABINOIDS QUAL PRESUMPTIVE POSITIVE (NONE DETECT); UR COCAINE QUAL NONE DETECTED (NONE DETECT); UR METHADONE QUAL NONE DETECTED (NONE DETECT); UR OPIATES QUAL NONE DETECTED (NONE DETECT); UR OXYCODONE QUAL NONE DETECTED (NONE DETECT); UR PCP QUAL NONE DETECTED (NONE DETECT)
--- NOTE | 2019-03-28 18:45 | PROVIDER DOCUMENTATION ---
This chart was entered by Gely Santiago Scribe, acting as scribe for Kwadwo Chester MD. HPI-Abdominal Pain/GI Problem - General Chief Complaint: Abdominal Pain Stated Complaint: RETURN/RECHECK SEEN LAST NIGHT HERE Time Seen by Provider: 03/28/19 10:18 Source: patient Allergies/Adverse Reactions: Patient Allergies Allergy/AdvReac Type Severity Reaction Status Date / Time shellfish derived Allergy Severe RASH Verified 03/28/19 11:41 nuts Allergy Severe RASH Uncoded 03/28/19 11:41 Home Medications: Home Medication List Medication Instructions Recorded Confirmed Last Taken Type Metoprolol Succinate E.r. [Toprol 1 tab PO DAILY 03/28/19 03/28/19 03/26/19 History Xl] - History of Present Illness-ABD Nature of Presenting Problems: 43 yom presents to the ed with c/o abdominal pain with n/v. pt was seen last night for same complaint but sts this am sx have worsened. Abdominal Pain Onset Location: reports: generalized abdomen Pain Radiation: reports: no radiation Quality of Pain: reports: cramping Severity in ED: reports: moderate Onset/Duration: reports: last night Timing: reports: still present, intermittent Activities at Onset: reports: light activity Exposure to sick contacts?: No Modifying Factors: improves with: nothing. worse with: eating Associated Symptoms: reports: cough, nausea, vomiting. denies: back/neck pain, chest pain, diarrhea, fatigue, shortness of breath, weakness Last BM: last night Dark Stools Present?: reports: none noticed Rectal Bleeding: reports: none # of Diarrhea Episodes: 0 Rectal Pain: reports: none # of Vomiting Episodes: 4 Emesis Description: reports: none Bruising or Bleeding Gums?: No Similar Symptoms Previously?: Yes Recently seen or treated by another doctor?: Yes (seen last night in ed) Review of Systems - Adult - REVIEW OF SYSTEMS - ADULT Constitutional: denies: chills, fever Eyes: reports: no symptoms reported Ears, Nose, Mouth & Throat: reports: no symptoms reported Cardiovascular: denies: chest pain, palpitations Respiratory: denies: shortness of breath, wheezing Gastrointestinal: reports: see HPI, abdominal pain, nausea, poor appetite, vomiting. denies: diarrhea Genitourinary: reports: no symptoms reported Musculoskeletal: reports: no symptoms reported Integumentary: reports: no symptoms reported Neurological: denies: dizziness/vertigo, headache/migraines Psychiatric: reports: no symptoms reported Endocrine: reports: no symptoms reported Hematologic/Lymphatic: reports: no symptoms reported Allergic/Immunologic: reports: no symptoms reported All Other Systems: Reviewed and Negative Past History - Adult - PAST MEDICAL HISTORY-ADULT Review of Records: reports: Nursing Assessment Review, Medications Reviewed Major Childhood Illnesses: reports: denies history Cardiovascular: reports: HTN (stopped taking HTN meds months ago, was told they were not necessary) Respiratory: reports: denies history Gastrointestinal: reports: diverticulosis, ulcer, other (diverticulitis, hyperemesis from THC use) Genitourinary: reports: denies history Musculoskeletal: reports: denies history Neurological: reports: headaches/migraines, Seizures/Epilepsy Psychiatric: reports: denies history Endocrine/Immune: reports: denies history Other Conditions: reports: denies history - PRIOR SURGERIES/PROCEDURES Surgical/Procedure History: reports: colonoscopy, cholecystectomy, other (fistulotomy) - PRIOR HOSPITALIZATIONS Prior Hospitalizations: reports: none - IMMUNIZATION STATUS Childhood Immunizations: See Nurse Assessment Flu Vaccine: See Nurse Assessment - FAMILY HISTORY Family History: reviewed, not pertinent - SOCIAL HISTORY Substance Use: alcohol, other (sts substance abuse but will not say what kind) Alcohol Use Frequency: every day Number of drinks per typical drinking period:: 3-4 drinks Living Situation: family Physical Exam-General - PHYSICAL EXAM-ADULT Initial Vital Signs Reviewed: Yes (elevated BP 228/147) - CONSTITUTIONAL General Appearance: alert, mild distress, obese - EYES Eyes: PERRL/EOMI, pink conjunctivae - HEAD, EARS, NOSE, MOUTH & THROAT HENMT: negative: moist mucous membranes (dry oral) - NECK Neck: non-tender, full range of motion, supple, normal inspection - RESPIRATORY Respiratory: chest non-tender, lungs clear, normal breath sounds - CARDIOVASCULAR Cardiovascular: normal peripheral pulses, regular rate, rhythm - GASTROINTESTINAL (ABDOMEN) Abdominal Exam: normal bowel sounds, soft, guarding, tenderness (diffuse). negative: distended, rigid, rebound - LYMPHATIC Lymphatic: no adenopathy - MUSCULOSKELETAL Back Exam: normal inspection, no CVA tenderness, no vertebral tenderness Extremity: normal range of motion, non-tender, normal inspection, no pedal edema , no calf tenderness, normal capillary refill, pelvis stable - SKIN Integumentary: normal color, normal turgor, warm/dry - NEUROLOGIC Neurologic: grossly normal - PSYCHIATRIC Psych/Mental Status: normal mood/affect, normal thought content, normal thought process, oriented x 3 Progress - PLAN OF CARE/RESULTS Progress/Plan/Lab Results: Vital Signs - 8 hr 03/28/19 10:12 Temperature 99.2 F Pulse Rate 90 Respiratory Rate 18 Blood Pressure 228/147 O2 Sat by Pulse Oximetry 98 Orders Category Date Time Status CBC WITH ELECTRONIC DIFF [HEME] Stat Lab 03/28/19 10:33 Uncollected COMPREHENSIVE METABOLIC PANEL [CHEM] Stat Lab 03/28/19 10:33 Uncollected LIPASE [CHEM] Stat Lab 03/28/19 10:33 Uncollected 0.9% Sodium Chloride Inj [Ns] 1,000 ml Med 03/28/19 10:33 Active IV 999 mls/hr Hydromorphone [Dilaudid] Med 03/28/19 10:34 Discontinued 1 mg IV NOW ONE Ondansetron [Zofran] Med 03/28/19 10:33 Discontinued 4 mg IV NOW ONE patient with increased wbc, elev lipase and worsening symptoms. Result Diagrams: 03/28/19 11:30 03/28/19 11:30 - REASSESSMENT Reassessment #1 Time Reassessed: 12:55 Status: unchanged - CONSULTS/PCP/HOSPITALIST Notification #1 *Consult/PCP/Hospitalist*: dr mosley pcp Time Discussed: 12:55 Consult Disposition: Admit Departure - Departure Date of Disposition Decision: 03/28/19 Time of Disposition Decision: 12:55 DIAGNOSIS: Pancreatitis Disposition: ADMITTED INPATIENT 09 Certified Medical Emergency: Emergent Condition: Serious - Critical Care Note This patient required my direct & personal management of CC.: No Attestation - Physician/ ABBY Attestation Patient care was provided by Advanced Practice Provider:: No The physician spent face to face time with patient:: Yes Advanced Practice Provider documentation review:: Supervising physician onsite and consulted in the evaluation and care of this patient. The physician did have a face to face encounter with the patient. This chart was documented by the indicated scribe, (Gely Santiago Scribe) and accurately reflects the services I performed and decisions made by me, Kwadwo Chester MD, as attested by the provider's signature.
[2019-03-28] MEDS: LEVAQUIN 500 MG/D5W 500 MG/100 ML IVPB IV SCH (21:18)
--- NOTE | 2019-03-28 22:17 | HISTORY AND PHYSICAL ---
CHIEF COMPLAINT: Upper abdominal pain, nausea, vomiting for the last 1 day. HISTORY OF PRESENT ILLNESS: He is a 43-year-old male who came to the [facility]Surg Clinic twice with upper abdominal pain, nausea, vomiting, and he was sent home yesterday. He came back second time with elevated white cell count, amylase, and lipase. He is also using chronic cannabis. Basically, he has pancreatitis, etiology to be determined. This could be from chronic cannabis syndrome as well. He was started on IV fluids and further management. We will follow up on Houston's criteria. PAST MEDICAL HISTORY: 1. Chronic cannabis syndrome. 2. Hypertension. PAST SURGICAL HISTORY: 1. Cholecystectomy. 2. Hemorrhoid surgery. 3. Excision of sebaceous cyst in September in my office in the left side mid back and the scalp. MEDICINES PRIOR TO THE ADMISSION: Aldactazide. ALLERGIES: Not known. SOCIAL HISTORY: Working in [employer]. Lives in [place]. No smoking. Occasional alcohol. Also using marijuana, FAMILY HISTORY: Father is 86 years old, in good health. Mom is 76 years old, in good health. One brother with colon cancer. HEALTH MAINTENANCE: Colon[place] [address] Uribe. REVIEW OF SYSTEMS: HEENT: No headache. No vision problem. No earache. No sore throat. Neck: No goiter. No lymphadenopathy. No bruit. Cardiopulmonary: No chest pain, shortness of breath, PND, orthopnea. GI: Nausea, abdominal pain. No bleeding per rectum. : No history of hesitancy, frequency, dysuria. Extremities: No swelling of legs. No joint pain. Neurologic: No focal symptoms or weakness. PHYSICAL EXAMINATION: VITAL SIGNS: Temperature is 98 degrees, pulse 88, blood pressure 170/124. HEENT: Atraumatic, normocephalic. Pupils equal, reacting to light. TMs are normal. Nose and throat within normal limits. NECK: Supple. No lymphadenopathy. CHEST: Bilateral air entry. HEART: Sounds are regular. ABDOMEN: Belly is soft. Tender in epigastric area. No signs of peritonitis. NEUROLOGIC: No neurological deficits. INVESTIGATIONS: CBC: White cell count 15, hematocrit 45, platelets 235,000. SMA 7 is normal. Glucose 133, total protein 8.9. Amylase and lipase were high. Urinalysis positive for marijuana. CT scan of the abdomen and pelvis last night: Cholecystectomy, fatty liver, normal pancreas. ASSESSMENT AND PLAN: A 43-year-old male admitted to the hospital with: 1. Abdominal pain with pancreatitis. Will check the lipid profile. History of gallbladder surgery. Recent CAT scan is negative. Will check the lipid panel. Plan is intravenous fluids, intravenous Pepcid, intravenous Zofran, Dilaudid for pain. 2. Chronic cannabis syndrome. 3. Will advise to take hot showers. 4. Zofran for nausea. 5. Follow up on the pending labs. cc: Odin Mazariegos MD
[2019-03-29] MEDS: TYLENOL PO PRN (04:19)
[2019-03-29] MEDS: DILAUDID IV PRN ×5 (06:29→23:47)
[2019-03-29] MEDS: PEPCID IV SCH ×2 (06:29→18:25)
[2019-03-29] MEDS: NS 1,000 ML IV SCH ×3 (06:30→23:29)
[2019-03-29 08:08] LABS: BASO# 0.02 X1000 (0.0-0.2); BASO% 0.2 % (0.0-0.8); EOS# 0.02 X1000 (0.0-0.7); EOS% 0.2 % (0.0-10.0); HEMOGLOBIN 14.1 g/dL (14.0-18.0); IMM GRAN# 0.02 X1000 (0.0-0.04); IMM GRAN% 0.2 % (0.0-0.5); LYMPH# 2.52 X1000 (1.2-3.4); LYMPH% 25.3 % (20.5-51.1); MCHC 33.6 g/dL (33-37); MCV 95.5 FL (81-99); MONO# 1.49 X1000 (0.11-0.59); NEUT# 5.88 X1000 (1.4-6.5); NEUT% 59.1 % (42.2-75.2); PLT 194 X1000 (130-400); RDW 13.9 % (11.5-14.5); WBC 9.95 X1000 (4.8-10.8)
[2019-03-29 08:32] LABS: AGAP 13; ALB/GLOB RATIO 1.2; ALBUMIN 3.7 g/dL (3.5-5.0); ALKALINE PHOSPHATASE 87 U/L (32-122); BUN 18 mg/dL (8-22); CALCIUM 8.5 mg/dL (8.8-10.2); CHLORIDE 106 mmol/L (98-107); CHOLESTEROL 163 mg/dL (0-200); COSMO 279; CREATININE 1.1 mg/dL (0.7-1.2); ESTIMATED GFR > 60; GLUCOSE 94 mg/dL (70-104); GOT 24 U/L (10-34); GPT 15 U/L (10-44); HDL 33 mg/dL (35-55); LDL 101 mg/dL; POTASSIUM 4.3 mmol/L (3.5-5.1); SODIUM 139 mmol/L (136-145); TCO2 20 mmol/L (25-35); TOTAL BILIRUBIN 0.46 mg/dL (0.20-1.00); TOTAL PROTEIN 6.8 g/dL (6.3-8.3); TRIGLYCERIDES 146 mg/dL (39-160); VLDL 29 mg/dL
[2019-03-29 09:14] LABS: SED RATE 34 mm/hr (0-15)
[2019-03-29] MEDS: ZOFRAN IV PRN ×4 (10:15→23:47)
[2019-03-29 10:59] LABS: AMYLASE 153 U/L (20-200); LIPASE 44 U/L (13-60)
[2019-03-29] MEDS: LAMISIL 1% CREAM TOP SCH (12:00)
--- NOTE | 2019-03-29 13:26 | PROGRESS NOTE ---
DATE: 03/29/2019 SUBJECTIVE: The patient says he is feeling a little bit better. Still has some tenderness over his pancreas. Amylase and lipase were initially elevated. We will repeat those today. OBJECTIVE: Vital signs: Blood pressure 159/104, respirations 18, pulse 85 and regular, temperature 98.6 degrees Fahrenheit. HEENT: He is normocephalic. EOMS intact. PERRLA. Throat clear. Lungs: Clear to auscultation and percussion without rhonchi, rales, or wheezes. Heart: Regular rate and rhythm without murmurs, gallops, friction rubs. Abdomen: Soft. Active bowel sounds with mild tenderness over the pancreas. Neurologic: Intact grossly. LABORATORY DATA: Essentially normal including CBC and electrolytes. Triglycerides are 146. Amylase yesterday was 336 and lipase 258. We will repeat those today. ASSESSMENT: Pancreatitis and chronic marijuana use. cc: MD Odin Lind Jr, MD
[2019-03-29] MEDS: APRESOLINE IV PRN (20:14)
[2019-03-29] MEDS: LEVAQUIN 500 MG/D5W 500 MG/100 ML IVPB IV SCH (20:14)
[2019-03-30] MEDS: TYLENOL PO PRN (01:53)
[2019-03-30] MEDS: DILAUDID IV PRN ×6 (02:58→21:26)
[2019-03-30] MEDS: ZOFRAN IV PRN ×5 (04:00→21:26)
[2019-03-30] MEDS: NS 1,000 ML IV SCH ×3 (06:14→22:47)
[2019-03-30] MEDS: PEPCID IV SCH ×2 (06:30→20:41)
--- NOTE | 2019-03-30 11:28 | PROGRESS NOTE ---
DATE: 03/30/2019 SUBJECTIVE: The patient says he is feeling better. He has just a little tenderness over his pancreas at this time. Amylase is down to 153, lipase down to 44. OBJECTIVE: Vital Signs: Blood pressure 151/95, respirations 18, pulse 79, temperature 98.1 degrees Fahrenheit. HEENT: Normocephalic. EOMs intact. PERRLA. Throat clear. Lungs: Clear to auscultation and percussion without rhonchi, rales, or wheezes. Heart: Regular rate and rhythm without murmurs, gallops, friction rubs. Abdomen: Soft with very mild tenderness over the pancreas. Neurologic: Cranial nerves 2-12 intact grossly. Sensory and motor intact. Reflexes 1+ all. LABORATORY DATA: White count is down to 9950 from 15,320. The lab work I mentioned today with white count, amylase and lipase were actually drawn yesterday. ASSESSMENT: Resolving pancreatitis. PLAN: Continue support. cc: MD Odin Lind Jr, MD
[2019-03-30] MEDS: LAMISIL 1% CREAM TOP SCH (18:21)
[2019-03-30] MEDS: LEVAQUIN 500 MG/D5W 500 MG/100 ML IVPB IV SCH (20:37)
[2019-03-31] MEDS: DILAUDID IV PRN ×2 (00:25→03:25)
[2019-03-31] MEDS: ZOFRAN IV PRN ×2 (00:25→03:25)
[2019-03-31 07:41] VITALS: BP 164/100
--- NOTE | 2019-04-01 22:23 | DISCHARGE SUMMARY ---
ADMISSION DATE: 03/28/2019 DISCHARGE DATE: 03/31/2019 DISCHARGING DIAGNOSIS: 1. Abdominal pain due to pancreatitis, etiology is to be determined. 2. Chronic cannabis syndrome. 3. Hypertension. BRIEF HISTORY: Please see the H and P that was done on 03/28/2019. In brief he is a 43-year-old male basically was admitted to the hospital with upper abdominal pain, nausea, vomiting and initial workup was negative. He came back 2nd time. White cell count 15,000. Amylase, lipase were high. HOSPITAL COURSE: He was treated IV fluids, IV Pepcid, symptomatic treatment for nausea. Followup amylase, lipase came back normal. Patient had a prior gallbladder surgery. He denies of taking any alcohol. Triglycerides are normal and this could be exacerbation of chronic cannabis syndrome. Explained about the side effects. Rest of the hospital course was uneventful. LABS: CBC. White cell count 9.9, hematocrit 42, platelets 194,000, sedimentation rate is 34. Sodium 139, potassium 4.3, chloride 106, BUN 18, creatinine 1.1, glucose 94. Liver function tests were normal. Triglycerides 146, cholesterol 163, LDL 101, HDL is 33. Urinalysis positive for marijuana. CT scan of the abdomen and pelvis on 03/27/2019, cholecystectomy, fatty liver, normal pancreas. Patient is tolerating the diet very well. DISCHARGE INSTRUCTIONS: Toprol-XL 25 daily, Prilosec 40 daily, Zofran as needed for nausea. Avoid using cannabis products. If he has symptomatic abdominal pain, nausea patient is advised to take hot showers. Follow up in my office in 2 weeks. cc: Odin Mazariegos MD
== END 2019-03-31 10:20 | disposition home or self-care (01) | DRG 440 ==
LOC: ED 10:10 → 3N 15:44
PROVIDERS: ADMIT Internal Medicine; ATTEND Internal Medicine
CPT/HCPCS: 80053; 80061; 80101; 80301; 80307; 80324; 80345; 80346; 80353; 80358; 80361; 80365; 82140; 82150; 82948; 83690; 83992; 85025; 85651; 96361; 96374; 96375; 99285; A9270; G0431; G0434; G0479; G0480; J0360; J1170; J1956; J2405; J7030; S0028; XXXXX

== ENCOUNTER 2019-07-09 05:56 | Observation (INO) ==
[2019-07-09] MEDS ORDERED: NS 1,000 ML IV ONE ×2 (06:39→09:25)
[2019-07-09] MEDS ORDERED: TORADOL IV ONE (06:39)
[2019-07-09] MEDS ORDERED: ZOFRAN IV ONE (06:39)
--- NOTE | 2019-07-09 06:45 | PROVIDER DOCUMENTATION ---
HPI-Abdominal Pain/GI Problem - General Chief Complaint: Epigastric Pain Stated Complaint: PANCREATITIS Time Seen by Provider: 07/09/19 06:07 Source: patient Allergies/Adverse Reactions: Patient Allergies Allergy/AdvReac Type Severity Reaction Status Date / Time shellfish derived Allergy Severe RASH Verified 07/09/19 06:29 nuts Allergy Severe RASH Uncoded 07/09/19 06:29 Home Medications: Home Medication List Medication Instructions Recorded Confirmed Last Taken Type Metoprolol Succinate E.r. [Toprol 1 tab PO DAILY 03/28/19 07/09/19 03/26/19 History Xl] - History of Present Illness-ABD Nature of Presenting Problems: Presents to the with complaints of nausea and vomiting and abdominal pain that started yesterday. He states that he has vomited about 50 times. He has a history of pancreatitis but states he has had his GB taken out. he has one leftover dose of zofran that he took yesterday and this helped only a little bit. He states his abdominal pain is mostly LLQ and right chest. He denies any fevers, diarrhea, constipation or dysuria. Review of Systems - Adult - REVIEW OF SYSTEMS - ADULT Constitutional: reports: see HPI Eyes: reports: no symptoms reported Ears, Nose, Mouth & Throat: reports: no symptoms reported Cardiovascular: reports: no symptoms reported Respiratory: reports: no symptoms reported Gastrointestinal: reports: see HPI, abdominal pain, nausea, poor appetite, vomiting. denies: constipation, diarrhea Genitourinary: reports: see HPI Musculoskeletal: reports: no symptoms reported Integumentary: reports: no symptoms reported Neurological: reports: no symptoms reported Psychiatric: reports: no symptoms reported Endocrine: reports: no symptoms reported Hematologic/Lymphatic: reports: no symptoms reported Allergic/Immunologic: reports: no symptoms reported All Other Systems: Reviewed and Negative Past History - Adult - PAST MEDICAL HISTORY-ADULT Review of Records: reports: Old Records Reviewed Major Childhood Illnesses: reports: denies history Cardiovascular: reports: HTN (stopped taking HTN meds months ago, was told they were not necessary) Respiratory: reports: denies history Gastrointestinal: reports: ulcer, other (diverticulitis, hyperemesis from THC use) Obstetrical/Gynecological: reports: denies history Genitourinary: reports: denies history Musculoskeletal: reports: denies history Neurological: reports: headaches/migraines, Seizures/Epilepsy Psychiatric: reports: denies history Endocrine/Immune: reports: denies history Other Conditions: reports: denies history - PRIOR SURGERIES/PROCEDURES Surgical/Procedure History: reports: colonoscopy, cholecystectomy, other (fistulotomy) - PRIOR HOSPITALIZATIONS Prior Hospitalizations: reports: none - IMMUNIZATION STATUS Childhood Immunizations: See Nurse Assessment Flu Vaccine: See Nurse Assessment - FAMILY HISTORY Family History: reviewed, not pertinent Physical Exam-General - CONSTITUTIONAL General Appearance: alert, mild distress (uncomfortable appearing) - EYES Eyes: PERRL/EOMI - HEAD, EARS, NOSE, MOUTH & THROAT HENMT: normocephalic/atraumatic, moist mucous membranes - NECK Neck: supple, normal inspection - RESPIRATORY Respiratory: chest non-tender, lungs clear, normal breath sounds - CARDIOVASCULAR Cardiovascular: normal peripheral pulses, regular rate, rhythm, no murmur - GASTROINTESTINAL (ABDOMEN) Abdominal Exam: normal bowel sounds, soft, tenderness (diffuse but worse in LLQ) - MUSCULOSKELETAL Back Exam: normal inspection, no CVA tenderness Extremity: normal range of motion, non-tender, normal inspection - SKIN Integumentary: normal color, warm/dry - NEUROLOGIC Neurologic: grossly normal - PSYCHIATRIC Psych/Mental Status: normal mood/affect, oriented x 3 Progress - PLAN OF CARE/RESULTS Progress/Plan/Lab Results: Vital Signs - 8 hr 07/09/19 05:56 Temperature 97.7 F Pulse Rate 92 H Respiratory Rate 19 Blood Pressure 142/121 O2 Sat by Pulse Oximetry 96 Result Diagrams: 07/09/19 07:10 07/09/19 07:10 - EKG 1 Time of EKG reading by physician:: 06:07 EKG Read and Signed by:: Kirsten Esparza EKG Interpretation (*Must complete 3 of following elements*): Abnormal Rate: 87 Rhythm: NSR QRS: LVH Prior EKG Comparison: unchanged from prior - CHANGE OF SHIFT REPORT (ED Provider) 1 Report Given and Care Transferred to:: Dr Mello Time of Transfer: 07:00 Items Pending: Labs Departure - Departure Date of Disposition Decision: 07/09/19 Time of Disposition Decision: 09:24 DIAGNOSIS: Pancreatitis Disposition: ADMITTED INPATIENT 09 Certified Medical Emergency: Emergent Condition: Good Referrals and Follow-Ups: Lindsay Mazariegos MD [Primary Care Provider] - - Critical Care Note This patient required my direct & personal management of CC.: No Attestation - Physician/ ABBY Attestation Patient care was provided by Advanced Practice Provider:: No The physician spent face to face time with patient:: Yes Advanced Practice Provider documentation review:: Supervising physician onsite and consulted in the evaluation and care of this patient. The physician did have a face to face encounter with the patient.
[2019-07-09 07:27] LABS: BASO# 0.01 X1000 (0.0-0.2); BASO% 0.1 % (0.0-0.8); EOS# 0.03 X1000 (0.0-0.7); EOS% 0.2 % (0.0-10.0); HEMATOCRIT 50.4 % (42.0-52.0); HEMOGLOBIN 17.9 g/dL (14.0-18.0); IMM GRAN# 0.05 X1000 (0.0-0.04); IMM GRAN% 0.3 % (0.0-0.5); LYMPH# 2.39 X1000 (1.2-3.4); LYMPH% 16.7 % (20.5-51.1); MCH 32.3 PG (27-31); MCHC 35.5 g/dL (33-37); MONO# 1.66 X1000 (0.11-0.59); MONO% 11.6 % (1.7-9.3); MPV 11.1 FL (7.4-10.4); NEUT% 71.1 % (42.2-75.2); PLT 220 X1000 (130-400); RBC 5.54 XMIL (4.7-6.1); RDW 13.3 % (11.5-14.5); WBC 14.34 X1000 (4.8-10.8)
--- NOTE | 2019-07-09 07:35 | Diag Imaging Result Doc PS360 ---
CHEST-PORTABLE - 07/09/2019 INDICATION: chest pain COMPARISON: 01/04/2017 FINDINGS: The lungs are normally expanded and clear. Heart size and mediastinal contours are normal. No pneumothorax or pleural effusion. IMPRESSION: Negative exam. Electronically signed by Guanaco Neumann 07/09/2019 7:33 AM
[2019-07-09] MEDS ORDERED: CATAPRES PO ONE (07:43)
[2019-07-09 07:47] LABS: AGAP 21; ALB/GLOB RATIO 1.3; ALBUMIN 5.3 g/dL (3.5-5.0); ALKALINE PHOSPHATASE 93 U/L (32-122); AMYLASE 311 U/L (20-200); BUN 26 mg/dL (8-22); CALCIUM 10.3 mg/dL (8.8-10.2); CHLORIDE 91 mmol/L (98-107); COSMO 279; CREATININE 1.5 mg/dL (0.7-1.2); ESTIMATED GFR > 60; GLUCOSE 145 mg/dL (70-104); GOT 26 U/L (10-34); GPT 19 U/L (10-44); LIPASE 277 U/L (13-60); POTASSIUM 3.3 mmol/L (3.5-5.1); SODIUM 136 mmol/L (136-145); TCO2 24 mmol/L (25-35); TOTAL BILIRUBIN 0.52 mg/dL (0.20-1.00); TOTAL PROTEIN 9.3 g/dL (6.3-8.3)
[2019-07-09 09:14] LABS: URINE SOURCE CLEAN CATCH
[2019-07-09 09:22] LABS: BILIRUBIN URINE NEGATIVE (NEGATIVE); BLOOD URINE SMALL (NEGATIVE); COLOR YELLOW; GLUCOSE URINE NEGATIVE (NEGATIVE); KETONE URINE TRACE mg/dL (NEGATIVE); LEUKOCYTES URINE NEGATIVE (NEGATIVE); NITRITE URINE NEGATIVE (NEGATIVE); PROTEIN URINE 300 mg/dL (NEGATIVE); SP GRAVITY URINE 1.034; TURBIDITY URINE CLEAR (CLEAR); UROBILINOGEN URINE NORMAL (NORMAL)
[2019-07-09] MEDS ORDERED: MORPHINE IV PRN (09:25)
[2019-07-09] MEDS ORDERED: ZOFRAN IV PRN (09:25)
[2019-07-09 09:29] LABS: UR AMPHETAMINES QUAL NONE DETECTED (NONE DETECT); UR BARBITUATES QUAL NONE DETECTED (NONE DETECT); UR BENZODIAZEPIN QUAL NONE DETECTED (NONE DETECT); UR CANNABINOIDS QUAL PRESUMPTIVE POSITIVE (NONE DETECT); UR COCAINE QUAL NONE DETECTED (NONE DETECT); UR METHADONE QUAL NONE DETECTED (NONE DETECT); UR OPIATES QUAL NONE DETECTED (NONE DETECT); UR OXYCODONE QUAL NONE DETECTED (NONE DETECT); UR PCP QUAL NONE DETECTED (NONE DETECT)
[2019-07-09 09:37] LABS: UR EPITHELIAL CELLS <10 /HPF (<10); URINE BACTERIA NEGATIVE /HPF; URINE RBC <10 /HPF (<10); URINE WBC <10 /HPF (<10)
[2019-07-09 09:44] LABS: URINE CASTS NONE SEEN
--- NOTE | 2019-07-09 10:25 | EKG Report ---
Test Performed on : 07/09/2019 06:05:12 AM Test Reason : PANCREATITIS Blood Pressure : / mmHG Vent. Rate : 087 BPM Atrial Rate : 087 BPM P-R Int : 162 ms QRS Dur : 088 ms QT Int : 350 ms P-R-T Axes : 062 069 054 degrees QTc Int : 421 ms Normal sinus rhythm. Biatrial enlargement Abnormal ECG When compared with ECG of 20-NOV-2018 21:53, Vent. rate has decreased BY 43 BPM Unconfirmed Result
[2019-07-09] MEDS ORDERED: LABETALOL IV PRN (10:59)
[2019-07-09] MEDS ORDERED: APRESOLINE IV PRN (12:48)
[2019-07-09] MEDS ORDERED: DILAUDID IV PRN (14:46)
[2019-07-09] MEDS: ZOFRAN IV PRN ×2 (14:54→19:22)
[2019-07-09] MEDS ORDERED: DILAUDID ONE (15:00)
[2019-07-09] MEDS: NS 1,000 ML IV SCH (18:20)
[2019-07-09] MEDS: PROTONIX IV SCH (20:39)
[2019-07-09] MEDS: SODIUM CHLORIDE 0.9% INJ SCH (20:39)
[2019-07-09] MEDS: DILAUDID IV PRN (20:40)
--- NOTE | 2019-07-09 22:36 | HISTORY AND PHYSICAL ---
CHIEF COMPLAINT: Upper abdominal pain, nausea, vomiting for the last 1 day. HISTORY OF PRESENT ILLNESS: He is a 43-year-old male who came into the emergency room with upper abdominal pain, nausea, vomiting. The patient was found to have elevated amylase and lipase. He has a habitual use of chronic cannabis. His gallbladder was taken out. He is hypertensive and dehydrated, hypokalemic as a result, he has been hospitalized for acute pancreatitis, etiology is not clear. PAST MEDICAL HISTORY: Chronic cannabis syndrome, hypertension. PAST SURGICAL HISTORY: Cholecystectomy, hemorrhoid surgery, excision of sebaceous cyst on the scalp. MEDICINES: Metoprolol 25 daily. ALLERGIES: Not known. SOCIAL HISTORY: Working in [employer]. Living in [place]. No smoking. Occasional alcohol. Using marijuana. FAMILY HISTORY: Father is 86-year-old in good health. Mom is a 76-year-old in good health. Other brother with colon cancer. Last colonoscopy in [address] Uribe. REVIEW OF SYSTEMS: HEENT: No headache. No vision problem. No earache. No sore throat. Neck: No goiter. No lymphadenopathy. No bruit. Cardiopulmonary: No chest pain, shortness of breath, PND, orthopnea. GI: Upper abdominal pain, nausea. No dysphagia. No altered bowel habits. No bleeding per rectum. : No history of dysuria, hesitancy, frequency. No swelling of legs. No joint pain. Neurologic: No focal symptoms or weakness. PHYSICAL EXAMINATION: VITAL SIGNS: Temperature is 98.1 degrees, pulse is 85, blood pressure is 144/86, 97% on room air. HEENT: Within normal limits. NECK: Supple. No lymphadenopathy. CHEST: Bilateral air entry. HEART: Sounds are regular. ABDOMEN: Belly is soft. Tender in the epigastric area. EXTREMITIES: No peripheral edema, cyanosis. NEUROLOGIC: No obvious neurological deficits. INVESTIGATIONS: White cell count 14.3, hematocrit 50, platelets 220,000. Sodium 136, potassium 3.3, chloride 91, BUN 26, creatinine 1.5, glucose 145, calcium 10.3, total protein 9.3. Amylase and lipase were high. Urinalysis negative. Urine tox screen positive marijuana. Chest x-ray: No acute disease. EKG: Sinus tachycardia nothing acute. ASSESSMENT AND PLAN: 1. A 43-year-old with recurrent pancreatitis, etiology is not clear. Follow up on [place]an 's criteria. Plan is IV fluids. 2. Replace the potassium. 3. CT scan of the abdomen and pelvis and IV Nexium. 4. Hypertension. Will use hydralazine as needed. Pain control, Dilaudid and Zofran for nausea. 5. Chronic cannabis syndrome. 6. Check the lipid profile, IgG 4 levels and lipid profile in the morning. Continue O2, NPO except ice chips until the amylase levels comes back normal and discussed the plan of care with family. cc: Odin Mazariegos MD MTDD
[2019-07-10] MEDS: DILAUDID IV PRN ×7 (00:17→22:38)
[2019-07-10] MEDS: ZOFRAN IV PRN ×7 (00:17→22:38)
[2019-07-10] MEDS: NS 1,000 ML IV SCH ×3 (02:20→20:07)
[2019-07-10 06:18] LABS: PROTIME 14.7 Seconds (11.0-16.0)
[2019-07-10 06:19] LABS: INR 1.13
[2019-07-10 06:33] LABS: BASO# 0.01 X1000 (0.0-0.2); BASO% 0.1 % (0.0-0.8); EOS# 0.08 X1000 (0.0-0.7); EOS% 0.8 % (0.0-10.0); HEMATOCRIT 40.8 % (42.0-52.0); HEMOGLOBIN 14.2 g/dL (14.0-18.0); IMM GRAN# 0.03 X1000 (0.0-0.04); IMM GRAN% 0.3 % (0.0-0.5); LYMPH# 2.99 X1000 (1.2-3.4); LYMPH% 28.4 % (20.5-51.1); MCH 32.9 PG (27-31); MCHC 34.8 g/dL (33-37); MCV 94.7 FL (81-99); MONO# 1.26 X1000 (0.11-0.59); MPV 11.2 FL (7.4-10.4); NEUT# 6.15 X1000 (1.4-6.5); NEUT% 58.4 % (42.2-75.2); PLT 186 X1000 (130-400); RBC 4.31 XMIL (4.7-6.1); RDW 13.9 % (11.5-14.5); WBC 10.52 X1000 (4.8-10.8)
[2019-07-10 06:44] LABS: AGAP 12; ALB/GLOB RATIO 1.5; ALBUMIN 3.7 g/dL (3.5-5.0); ALKALINE PHOSPHATASE 71 U/L (32-122); AMYLASE 131 U/L (20-200); BUN 24 mg/dL (8-22); CALCIUM 8.7 mg/dL (8.8-10.2); CHLORIDE 106 mmol/L (98-107); CHOLESTEROL 138 mg/dL (0-200); CK PROFILE 213 U/L (24-204); COSMO 286; CREATININE 1.1 mg/dL (0.7-1.2); ESTIMATED GFR > 60; GLUCOSE 109 mg/dL (70-104); GOT 20 U/L (10-34); GPT 13 U/L (10-44); HDL 39 mg/dL (35-55); LDL 76 mg/dL; LIPASE 45 U/L (13-60); POTASSIUM 3.9 mmol/L (3.5-5.1); SODIUM 141 mmol/L (136-145); TCO2 23 mmol/L (25-35); TOTAL PROTEIN 6.2 g/dL (6.3-8.3); TRIGLYCERIDES 113 mg/dL (39-160); VLDL 23 mg/dL
[2019-07-10 07:30] LABS: CK INDEX 1.9 (0.0-2.5); CK-MB 3.97 ng/mL (0.0-5.0)
--- NOTE | 2019-07-10 08:00 | Diag Imaging Result Doc PS360 ---
CT ABD/PELVIS W/IV CONT ONLY - 07/10/2019 INDICATION: Abdominal pain COMPARISON: 03/27/2019 FINDINGS: The lung bases are clear and the heart size is normal. Stable cholecystectomy clips. The liver, spleen, pancreas, adrenals, and kidneys enhance normally. No bowel obstruction or inflammation. No constipation. Normal appendix. Urinary bladder, prostate, and rectum are normal. Bones are intact and well mineralized. IMPRESSION: Negative exam. This exam was performed using automated exposure control, adjustment of mA or kV according to patient size, and/or use of iterative reconstruction technique Electronically signed by Guanaco Neumann 07/10/2019 7:58 AM
[2019-07-10] MEDS: PROTONIX IV SCH (20:07)
[2019-07-10] MEDS: SODIUM CHLORIDE 0.9% INJ SCH (20:07)
--- NOTE | 2019-07-10 22:21 | PROGRESS NOTE ---
DATE: 07/10/2019 SUBJECTIVE: The patient had a CT scan, decreased abdominal pain, nausea. OBJECTIVE: Vital signs: Temperature is 98.3, pulse 64. Vitals are stable. HEENT Exam: Within normal limits. Neck: Supple. No lymphadenopathy. No goiter. Chest: Bilateral air entry. Cardiovascular: Heart sounds are regular. Abdomen: Belly is soft, nontender. Good bowel sounds. Neurological: No neurologic deficits. INVESTIGATIONS: White cell count 10.5, hematocrit 40.8, platelets 186,000. PT 14.7. INR 1.13. Sodium 140, potassium 3.9, BUN 24, creatinine 1.1, glucose 109, calcium 8.7. Cardiac enzymes were negative. LFTs were normal. Cholesterol 138. Amylase, lipase came back normal. ASSESSMENT AND PLAN: 1. Pancreatitis, idiopathic. We will check IgG 4 levels. 2. Chronic cannabis syndrome. Clear liquid. CT findings were discussed. Nothing acute. 3. History of gallbladder surgery. Normal lipid panel and no alcohol history and continue IV fluids, IV Protonix and slowly advance the diet. If he is stable, we will discharge in the morning. Currently medically stable. LEVEL OF DOCUMENTATION: 35 minutes. cc: Odin Mazariegos MD MTDD
[2019-07-11] MEDS: ZOFRAN IV PRN ×2 (02:57→07:25)
[2019-07-11] MEDS: DILAUDID IV PRN ×2 (02:57→07:25)
[2019-07-11] MEDS: NS 1,000 ML IV SCH (02:58)
[2019-07-11 11:21] VITALS: BP 160/99
--- NOTE | 2019-07-13 19:53 | DISCHARGE SUMMARY ---
ADMISSION DATE: 07/09/2019 DISCHARGE DATE: 07/11/2019 DISCHARGING DIAGNOSIS: 1. Acute abdominal pain associated with hypertension. 2. Elevated amylase and lipase. Idiopathic pancreatitis. SECONDARY DIAGNOSES: 1. Chronic cannabis syndrome. 2. Hypertension. BRIEF HISTORY: Please see the H and P that was done on 07/09/2019. In brief he is a 43-year-old male with acute abdominal pain associated with blood pressure 220 by 140. The patient was admitted in ICU for monitoring the blood pressure. He was very tender with elevated amylase, lipase. He is using chronic marijuana. As part of the workup for pancreatitis, he has a gallbladder taken out. He denies of any alcohol. IgG 4 levels were normal. At this time the etiology was not clear. He was given symptomatic treatment. Follow up amylase, lipase were normal. Lipid profile is also normal. Patient slowly advance the diet and most of his symptoms related to chronic cannabis syndrome. I did advise the patient to take the hot showers. Blood pressure is slowly coming back to normal. He has been tolerating the diet very well. Follow up on [place]'s criteria his numbers came back normal. CT scan of the abdomen and pelvis status post cholecystectomy negative exam. LABS: CBC: White cell count 10.5, hematocrit 40.8, platelets 186,000. PT 14, INR 1.1. Sodium 140, potassium 3.9, chloride 106, BUN 24, creatinine 1.1, glucose 109, calcium 8.7. Liver function tests came back normal. Amylase, lipase came back normal. Triglycerides 113, cholesterol 138, LDL 76, HDL 39. DISCHARGE INSTRUCTIONS ARE FOLLOWS: 1. Toprol 25 daily, Bentyl as needed, Zofran for p.r.n. pain. 2. Avoid use of marijuana. 3. Follow up on sebaceous cyst on the scalp. 4. Quit smoking. 5. Follow up in my office my office in 1 week. cc: Odin Mazariegos MD MTDD
== END 2019-07-11 14:38 | disposition home or self-care (01) ==
LOC: ED 05:56 → EDIPHOLD 05:56 → 2N 14:32
PROVIDERS: ADMIT Internal Medicine; ATTEND Internal Medicine